=== PATIENT | male | born 1960 | race Caucasian/White ===

== ENCOUNTER → 2017-03-08 | Outpatient (CLI) | payer BC ==
[~2017-03-08] MED LIST: AMOX1TAB42 PO; AMOX500T PO; ASPCH81X PO; B COCAP3 PO; CINN1CAP2 PO; CITA40TA4 PO; EMPA1TAB5 PO; GABA-113 PO; GEMF600T3 PO; LORA-741 PO; METF500T5 PO; METO50TA16 PO; QUIN20TA30 PO; SACC250C3 PO; SIMV40TA2 PO; SULF-183 PO; VITA400C28 PO; ZINC25TA PO
[2017-03-08 14:56] LABS: BLOOD UREA NITROGEN 34 mg/dl (7-18); BUN/CREATININE RATIO 22.4 (10-20); CALCIUM 9.1 mg/dl (8.5-10.1); CARBON DIOXIDE 26 mmol/L (21-32); CHLORIDE 106 mmol/L (98-107); GLUCOSE 152 mg/dl (70-99); POTASSIUM 4.4 mmol/L (3.5-5.1); SODIUM 138 mmol/L (136-145)
[2017-03-08 15:40] LABS: RATIO 2527.5 mcg/mg (0-30.0)
== END | disposition home or self-care (01) ==
LOC: C.LAB1850 13:18
PROVIDERS: ATTEND Nurse Practitioner Family
DX: E11.65 Type 2 diabetes mellitus with hyperglycemia (principal)

== ENCOUNTER 2017-03-24 10:50 | Emergency (ER) | payer BC ==
[~2017-03-24] VITALS: Ht 182.9 cm; Wt 119.7 kg
[2017-03-24 10:54] VITALS: TEMP 36.4; Ht 182.9 cm; Wt 119.7 kg
[2017-03-24] MEDS ORDERED: SODIUM CHLORIDE 0.9% 1000ML 1,000 ML IV STA (11:24)
--- NOTE | 2017-03-24 11:28 | EMERGENCY ROOM VISIT NOTE ---
History Report prepared by Andrzej: Jocelyne Portillo Under the Supervision of: Dr. Sánchez Tucker M.D. First contact with patient: 11:13 Chief Complaint: WOUND INFECTION Stated Complaint: RIGHT LEG INFECTION/STREAK GOING UP LEG History of Present Illness The patient is a 56 year old male who presents to the Emergency Room with complaints of a worsening infection to his right foot that began over one week ago. He currently rates her discomfort as a 10/10 in severity. The patient reports that he has been treated for a cellulitis on his right foot with Ceftin for 6 days. He states that yesterday he saw his PCP and his infection was looking better, but notes that he had developed a cold. The patient states that due to his cold, his PCP decided to place him on a stronger antibiotic, Augmentin. He states that over night he began to notice an increased infection , noting streaking up his right leg. The patient reports a history of diabetes , noting that he is on Metformin, not insulin. He states that he is on aspirin daily. The patient denies any history of PE or DVT. He denies having a chest x -ray while at his PCP's office yesterday. The patient denies any fever, chills , nausea, vomiting, diarrhea, urinary symptoms, dizziness, or headaches. Source of History: patient Onset: over one week ago Position: foot (right) Symptom Intensity: 10/10 Quality: other (infection) Timing: worsening Associated Symptoms: No fevers, No chills, No headache, No nausea, No vomiting, No diarrhea, No urinary symptoms Review of Systems See HPI for pertinent positives and negatives. A total of ten systems were reviewed and were otherwise negative. Past Medical & Surgical Medical Problems: (1) Diabetes Family History No pertinent family history stated. Social History Smoking Status: Former Smoker Marital Status: Housing Status: lives with significant other Occupation Status: employed Current/Historical Medications Scheduled Amoxicillin & Pot Clavulanate (Augmentin 500MG), 500 MG PO Q8H Amoxicillin & Pot Clavulanate (Amoxicillin/Clavulanate P), 1 TAB PO BID Aspirin (Aspirin Chewable), 81 MG PO BID B Complex W/ C (Vitamin B Complex-C), 1 CAP PO DAILY Cinnamon (Cinnamon), 500 MG PO DAILY Citalopram (Citalopram Hydrobromide), 40 MG PO DAILY Empagliflozin-Linagliptin (Glyxambi 25-5 mg), 1 TAB PO DAILY Gabapentin (Neurontin), 300 MG PO TID Gemfibrozil (Lopid), 600 MG PO BIDM Metformin Hcl Er (Glucophage Er), 1,000 MG PO BID Metoprolol Tartrate (Lopressor) (Lopressor), 200 MG PO BID Quinapril Hcl (Quinapril Hcl), 20 MG PO DAILY Saccharomyces Boulardii (Florastor), 1 CAP PO BID Simvastatin (Zocor), 40 MG PO QPM Sulfamethoxazole-Trimethoprim (Smz-Tmp Ds), 2 TAB PO BID Vitamin E (Alph-E), 400 MG PO DAILY Zinc (Zinc), 25 MG PO DAILY Scheduled PRN Lorazepam (Ativan), 0.5 MG PO TID PRN for Anxiety Allergies Coded Allergies: No Known Allergies (Unverified , 03/24/17) Physical Exam Vital Signs Date Time Temp Pulse Resp B/P (MAP) Pulse Ox O2 Delivery O2 Flow Rate FiO2 03/24/17 15:39 62 18 141/78 96 03/24/17 14:30 71 18 162/90 94 Room Air 03/24/17 12:30 74 15 121/71 98 Room Air 03/24/17 10:54 36.4 77 20 119/73 92 Room Air Physical Exam GENERAL: Awake, alert, well-appearing, in no distress HENT: Normocephalic, atraumatic. Dry mucous membranes. EYES: Normal conjunctiva. Sclera non-icteric. NECK: Supple. No nuchal rigidity. FROM. No JVD. RESPIRATORY: Clear to auscultation. CARDIAC: Regular rate, normal rhythm. Extremities warm and well perfused. Pulses equal. ABDOMEN: Soft, non-distended. No tenderness to palpation. No rebound or guarding. No masses. RECTAL: Deferred. MUSCULOSKELETAL: Chest examination reveals no tenderness. The back is symmetrical on inspection without obvious abnormality. There is no CVA tenderness to palpation. No joint edema. LOWER EXTREMITIES: Right lower extremity has an ulcer with induration but no fluctuance at the lateral aspect of the dorsum of the right foot with erythema and edema of the foot, spanning medially, has a streak of erythema extending on the medial aspect of the right lower leg. NEURO: Normal sensorium. No sensory or motor deficits noted. SKIN: No rash or jaundice noted. Medical Decision & Procedures ER Provider Diagnostic Interpretation: X-ray: Per my interpretation, radiologist review. RIGHT TIBIA/FIBULA 2 VIEWS ROUTINE CLINICAL HISTORY: Pain and swelling COMPARISON: None. DISCUSSION: No acute fractures or dislocations are visualized. There are vascular calcifications present. No destructive lesions are evident. There is mild soft tissue swelling. IMPRESSION: No fractures or destructive lesions identified. Electronically signed by: Javier Cary M.D. 03/24/2017 12:15 PM Dictated Date/Time: 03/24/2017 12:14 PM RIGHT FOOT MIN 3 VIEWS ROUTINE CLINICAL HISTORY: Right foot pain and swelling COMPARISON: None. DISCUSSION: There are tiny bony fragments adjacent to the medial aspect of the medial cuneiform. This could represent a small chip/avulsion fracture. Clinical correlation is advocated as no history of trauma was given. There are mild degenerative changes present. There is a prominent Achilles insertional spur. There is a small plantar calcaneal spur. There are vascular calcifications present. IMPRESSION: Tiny bony fragments adjacent the medial aspect of the medial cuneiform. This could represent a small chip/avulsion fracture of indeterminate age. Clinical correlation is advocated as no history of trauma was given. Electronically signed by: Javier Cary M.D. 03/24/2017 12:12 PM Dictated Date/Time: 03/24/2017 12:09 PM Laboratory Results 03/24/17 11:45 Red Blood Count 5.01, Mean Corpuscular Volume 90.2, Mean Corpuscular Hemoglobin 29.7, Mean Corpuscular Hemoglobin Concent 33.0, Mean Platelet Volume 10.7, Neutrophils (%) (Auto) 60.3, Lymphocytes (%) (Auto) 23.9, Monocytes (%) (Auto) 9.0, Eosinophils (%) (Auto) 5.6, Basophils (%) (Auto) 0.7, Neutrophils # (Auto) 5.49, Lymphocytes # (Auto) 2.18, Monocytes # (Auto) 0.82, Eosinophils # (Auto) 0.51, Basophils # (Auto) 0.06 03/24/17 11:45 Test 03/24/17 11:45 White Blood Count 9.11 K/uL (4.8-10.8) Red Blood Count 5.01 M/uL (4.7-6.1) Hemoglobin 14.9 g/dL (14.0-18.0) Hematocrit 45.2 % (42-52) Mean Corpuscular Volume 90.2 fL (80-100) Mean Corpuscular Hemoglobin 29.7 pg (25-34) Mean Corpuscular Hemoglobin Concent 33.0 g/dl (32-36) Platelet Count 195 K/uL (130-400) Mean Platelet Volume 10.7 fL (7.4-10.4) Neutrophils (%) (Auto) 60.3 % Lymphocytes (%) (Auto) 23.9 % Monocytes (%) (Auto) 9.0 % Eosinophils (%) (Auto) 5.6 % Basophils (%) (Auto) 0.7 % Neutrophils # (Auto) 5.49 K/uL (1.4-6.5) Lymphocytes # (Auto) 2.18 K/uL (1.2-3.4) Monocytes # (Auto) 0.82 K/uL (0.11-0.59) Eosinophils # (Auto) 0.51 K/uL (0-0.5) Basophils # (Auto) 0.06 K/uL (0-0.2) RDW Standard Deviation 43.0 fL (36.4-46.3) RDW Coefficient of Variation 13.1 % (11.5-14.5) Immature Granulocyte % (Auto) 0.5 % Immature Granulocyte # (Auto) 0.05 K/uL (0.00-0.02) Anion Gap 6.0 mmol/L (3-11) Est Creatinine Clear Calc Drug Dose 77.8 ml/min Estimated GFR () 64.2 Estimated GFR (Non- 55.4 BUN/Creatinine Ratio 16.9 (10-20) Calcium Level 8.9 mg/dl (8.5-10.1) Laboratory results reviewed by me Medications Administered Medications (Trade) Dose Ordered Sig/Huseyin Route Start Time Stop Time Status Last Admin Dose Admin Sodium Chloride 1,000 ml @ 250 mls/hr Q4H STAT IV 03/24/17 11:24 03/24/17 15:23 DC 03/24/17 11:24 250 MLS/HR Ampicillin Sodium/ Sulbactam Sodium 3000 mg/Sodium Chloride 108 ml @ 200 mls/hr ONE ONCE IV 03/24/17 12:30 03/24/17 13:02 DC 03/24/17 12:51 200 MLS/HR Trimethoprim/ Sulfamethoxazole (Septra Ds 800/ 160MG Tab) 2 tab NOW STAT PO 03/24/17 12:26 03/24/17 12:27 DC 03/24/17 12:51 2 TAB ED Course 1116: The patient was evaluated in room B9. A complete history and physical exam was performed. 1124: Ordered Sodium Chloride 1000 ml @ 250 mls/hr IV. 1226: Ordered Septra Ds 800/160 mg Tab 2 tab PO. 1230: Ordered Ampicillin Sodium/Sulbactam Sodium 3000 mg/Sodium Chloride 108 ml @ 200 mls/hr IV. Medical Decision I reviewed the patient's past medical history, medications, and the nursing notes as described above. The patient's presentation and history were concerning for Cellulitis, abscess, osteomyelitis, DVT. She is a 56-year-old gentleman with past medical history of diabetes who presents to emergency department with worsening redness in this right lower extremity related to a foot ulcer on the dorsum of his foot history of present illness. The patient is in no acute distress, afebrile table vital signs. On exam the patient has erythema on the dorsum of his foot adjacent to an ulcer, without induration or fluctuance. Erythema and warmth extend medially across the dorsum of the foot with a single streak extending medially across the lower leg. No crepitus. This occurs in the setting of the patient being on Ceftin year for 6 days but then being switched to Augmentin 500 days ago after being seen outpatient and his redness in his foot was improved and thus was treated more for URI symptoms. Labs unremarkable with WBC within normal limits. X-ray negative for osseous involvement. Given the patient is well-appearing, worsening of his cellulitis and this is in the setting of being switched to Augmentin 500 which is subtherapeutic dose for diabetic cellulitis will treat with IV dose of Unasyn today will add additional MRSA coverage with Bactrim. Patient is reliable and strict return instructions were given. Findings and plan for follow-up d/w patient. Patient agreeable and d/c'd per discharge instructions. Medication Reconcilliation Current Medication List: was personally reviewed by me Blood Pressure Screening Patient's blood pressure: Normal blood pressure Blood pressure disposition: Did not require urgent referral Impression Primary Impression: Cellulitis Scribe Attestation The scribe's documentation has been prepared under my direction and personally reviewed by me in its entirety. I confirm that the note above accurately reflects all work, treatment, procedures, and medical decision making performed by me. Departure Information Dispostion Home / Self-Care Prescriptions Saccharomyces Boulardii (Florastor) 250 Mg Cap 1 CAP PO BID for 10 Days, #20 CAP Prov: Sánchez Tucker M.D. 03/24/17 Sulfamethoxazole-Trimethoprim (SMZ-TMP DS) 1 Tab Tab 2 TAB PO BID for 10 Days, #40 TAB Prov: Sánchez Tucker M.D. 03/24/17 Amoxicillin & Pot Clavulanate (AMOXICILLIN/CLAVULANATE P) 1 Tab Tab 1 TAB PO BID for 10 Days, #20 TAB Take one 875/125 mg tablet by mouth BID Prov: Sánchez Tucker M.D. 03/24/17 Referrals Portia Ghosh M.D. (PCP) Patient Instructions Cellulitis Dc, My [facility] Additional Instructions Please follow up with your primary care physician in the next 1-3 days for re- evaluation. You have a skin infection. Otherwise, your exam, xrays, and lab results did not show signs of an emergent condition at this time. We have changed your antibiotic regimen to the following: Augmentin 875/125mg twice daily for 10 days. Bactrim DS 2 tablets twice daily for 10 days. Probiotic as directed to minimize antibiotic associated diarrhea. Return to the emergency department for worsening symptoms as described in the accompanying instructions.
[2017-03-24 11:56] LABS: BASO % 0.7 %; BASO ABS # 0.06 K/uL (0-0.2); COMPLETE YES; EOS % 5.6 %; HEMATOCRIT 45.2 % (42-52); IG% 0.5 %; LYMPH % 23.9 %; LYMPH ABS # 2.18 K/uL (1.2-3.4); MEAN CELL VOLUME 90.2 fL (80-100); MEAN CORPUSCULAR HEMOGLOBIN 29.7 pg (25-34); MEAN PLATELET VOLUME 10.7 fL (7.4-10.4); NEUT % 60.3 %; PLATELET COUNT 195 K/uL (130-400); RED BLOOD COUNT 5.01 M/uL (4.7-6.1); WHITE BLOOD COUNT 9.11 K/uL (4.8-10.8)
[2017-03-24 12:10] LABS: BUN/CREATININE RATIO 16.9 (10-20); CALCIUM 8.9 mg/dl (8.5-10.1); CREATININE 1.4 mg/dl (0.60-1.40); POTASSIUM 4.5 mmol/L (3.5-5.1)
--- NOTE | 2017-03-24 12:13 | DIAGNOSTIC IMAGING REPORT ---
RIGHT FOOT MIN 3 VIEWS ROUTINE CLINICAL HISTORY: Right foot pain and swelling COMPARISON: None. DISCUSSION: There are tiny bony fragments adjacent to the medial aspect of the medial cuneiform. This could represent a small chip/avulsion fracture. Clinical correlation is advocated as no history of trauma was given. There are mild degenerative changes present. There is a prominent Achilles insertional spur. There is a small plantar calcaneal spur. There are vascular calcifications present. IMPRESSION: Tiny bony fragments adjacent the medial aspect of the medial cuneiform. This could represent a small chip/avulsion fracture of indeterminate age. Clinical correlation is advocated as no history of trauma was given. Electronically signed by: Javier Cary M.D. 03/24/2017 12:12 PM Dictated Date/Time: 03/24/2017 12:09 PM
--- NOTE | 2017-03-24 12:16 | DIAGNOSTIC IMAGING REPORT ---
RIGHT TIBIA/FIBULA 2 VIEWS ROUTINE CLINICAL HISTORY: Pain and swelling COMPARISON: None. DISCUSSION: No acute fractures or dislocations are visualized. There are vascular calcifications present. No destructive lesions are evident. There is mild soft tissue swelling. IMPRESSION: No fractures or destructive lesions identified. Electronically signed by: Javier Cary M.D. 03/24/2017 12:15 PM Dictated Date/Time: 03/24/2017 12:14 PM
[2017-03-24] MEDS ORDERED: VITA400C28 PO (12:19)
[2017-03-24] MEDS ORDERED: B COCAP3 PO (12:19)
[2017-03-24] MEDS ORDERED: SIMV40TA2 PO (12:19)
[2017-03-24] MEDS ORDERED: QUIN20TA30 PO (12:19)
[2017-03-24] MEDS ORDERED: CINN1CAP2 PO (12:19)
[2017-03-24] MEDS ORDERED: GABA-113 PO (12:19)
[2017-03-24] MEDS ORDERED: METO50TA16 PO (12:19)
[2017-03-24] MEDS ORDERED: ZINC25TA PO (12:19)
[2017-03-24] MEDS ORDERED: GEMF600T3 PO (12:19)
[2017-03-24] MEDS ORDERED: ASPCH81X PO (12:19)
[2017-03-24] MEDS ORDERED: METF500T5 PO (12:19)
[2017-03-24] MEDS ORDERED: CITA40TA4 PO (12:19)
[2017-03-24] MEDS ORDERED: LORA-741 PO (12:19)
[2017-03-24] MEDS ORDERED: AMOX500T PO (12:19)
[2017-03-24] MEDS ORDERED: EMPA1TAB5 PO (12:19)
[2017-03-24] MEDS ORDERED: SULFAMETHOXAZOLE/TRIMETHOPRIM DS 800/160MG TAB PO STA (12:26)
[2017-03-24] MEDS ORDERED: AMPICILLIN/SULBACTAM SOD INJ 3,000 MG in SODIUM CHLORIDE 0.9% 100ML 100 ML IV ONE (12:30)
[2017-03-24] MEDS ORDERED: SACC250C3 PO (15:16)
[2017-03-24] MEDS ORDERED: AMOX1TAB42 PO (15:16)
[2017-03-24] MEDS ORDERED: SULF-183 PO (15:16)
[2017-03-24 15:39] VITALS: BP 141/78; PULSE 62; O2SAT 96
== END 2017-03-24 15:40 | disposition home or self-care (01) ==
LOC: C.EDB 10:53
DX: L03.115 Cellulitis of right lower limb (principal); E11.9 Type 2 diabetes mellitus without complications; Z79.82 Long term (current) use of aspirin; Z79.899 Other long term (current) drug therapy; Z79.2 Long term (current) use of antibiotics; Z87.891 Personal history of nicotine dependence

== ENCOUNTER → 2017-04-06 | Outpatient (CLI) | payer BC ==
[~2017-04-06] MED LIST changes: -AMOX1TAB42 PO; -SACC250C3 PO; -SULF-183 PO
--- NOTE | 2017-04-06 11:25 | DIAGNOSTIC IMAGING REPORT ---
(RENAL)RETROPERITON COMP CLINICAL HISTORY: 56 years-old Male presenting with N18.3 Chronic kidney disease (CKD), stage III (moderate)[id number]. TECHNIQUE: Real-time grayscale and limited color Doppler ultrasound imaging of the kidneys and bladder was performed. COMPARISON: None. FINDINGS: Right kidney: Normal echogenicity. Right kidney measures 12.1 cm. No hydronephrosis. No convincing evidence of calculus or mass. Normal perfusion. Left kidney: Normal echogenicity. Left kidney measures 11.8 cm. No hydronephrosis. No convincing evidence of calculus or mass. Normal perfusion. Bladder: No bladder wall thickening. Ureteral jets not visualized. Other: None. IMPRESSION: 1. Normal renal ultrasound. No obstruction. Electronically signed by: Ezio Baldwin M.D. 04/06/2017 11:23 AM Dictated Date/Time: 04/06/2017 11:22 AM
== END | disposition home or self-care (01) ==
LOC: C.ULTR 10:56
PROVIDERS: ATTEND Internal Medicine Nephrology
DX: N18.3 Chronic kidney disease, stage 3 (moderate) (principal)

== ENCOUNTER 2017-06-03 19:47 | Emergency (ER) | payer BC ==
[~2017-06-03] VITALS: Ht 182.9 cm; Wt 123.3 kg
[2017-06-03 19:55] VITALS: TEMP 36.5; Ht 182.9 cm; Wt 123.3 kg
[2017-06-03] MEDS ORDERED: LACTATED RINGER'S 1000ML 1,000 ML IV STA (20:17)
[2017-06-03] MEDS ORDERED: METOCLOPRAMIDE HCL INJ 5 MG/ML 2 ML VIAL IV STA (20:17)
--- NOTE | 2017-06-03 20:22 | EMERGENCY ROOM VISIT NOTE ---
History Report prepared by Andrzej: Soila Rayo Under the Supervision of: Dr. Sánchez Tucker M.D. First contact with patient: 19:59 Chief Complaint: FACIAL PAIN/INJURY Stated Complaint: FACE AND NECK PAIN History of Present Illness The patient is a 56 year old male who presents to the Emergency Room with complaints of worsening right sided facial pain beginning 2 weeks ago. The patient notes right sided nasal pressure, eye pressure, jaw pain, and neck pain. The patient denies any dizziness, lightheadedness, weakness, speech changes, headache, or vision symptoms. The patient recently saw his PCP who put him on Flonase. The patient states his pain occurs when he is exposed to cold air and then goes back in warm air. He reports when he is at home inside his symptoms are not present. He has never had pain like this before. The patient has a wound on foot on his foot which he was put on Augmentin for 3 weeks ago. He states his pain started around the time he stopped taking the Augmentin. The patient has been following up with wound care. The patient notes recently getting a shot in his eye for diabetic retinopathy. The patient has a history of diabetes and neuropathy in his feet. Source of History: patient Onset: 2 weeks ago Position: other (facial) Timing: worsening Associated Symptoms: + neck pain, + numbness, No headache, No weakness Note: The patient notes right sided nasal pressure, eye pressure, and jaw pain. Review of Systems See HPI for pertinent positives and negatives. A total of ten systems were reviewed and were otherwise negative. Past Medical & Surgical Medical Problems: (1) Diabetes Family History Patient reports no known family medical history. Social History Smoking Status: Never Smoker Marital Status: Housing Status: lives with significant other Occupation Status: employed Current/Historical Medications Scheduled Aspirin (Aspirin Chewable), 81 MG PO BID B Complex W/ C (Vitamin B Complex-C), 1 CAP PO DAILY Cinnamon (Cinnamon), 500 MG PO DAILY Citalopram (Citalopram Hydrobromide), 40 MG PO DAILY Empagliflozin-Linagliptin (Glyxambi 25-5 mg), 1 TAB PO DAILY Gabapentin (Neurontin), 300 MG PO TID Gemfibrozil (Lopid), 600 MG PO BIDM Metformin Hcl Er (Glucophage Er), 1,000 MG PO BID Metoprolol Tartrate (Lopressor) (Lopressor), 200 MG PO BID Quinapril Hcl (Quinapril Hcl), 20 MG PO DAILY Simvastatin (Zocor), 40 MG PO QPM Vitamin E (Alph-E), 400 MG PO DAILY Zinc (Zinc), 25 MG PO DAILY Scheduled PRN Acetaminophen (Tylenol), 1,000 MG PO UD PRN for Pain Pseudoephedrine Hcl (Sudafed Nasal Decongestan), 30 MG PO UD PRN for SINUS CONGESTION Allergies Coded Allergies: No Known Allergies (Unverified , 06/03/17) Physical Exam Vital Signs Date Time Temp Pulse Resp B/P (MAP) Pulse Ox O2 Delivery O2 Flow Rate FiO2 06/03/17 22:35 74 18 151/93 94 06/03/17 22:00 75 16 175/110 92 Room Air 06/03/17 20:55 75 15 173/85 95 Room Air 06/03/17 20:40 75 06/03/17 20:32 93 Room Air 06/03/17 19:55 36.5 78 18 146/93 92 Room Air Physical Exam GENERAL: Awake, alert, well-appearing, in no distress HENT: Normocephalic, atraumatic. Oropharynx unremarkable. EYES: Normal conjunctiva. Sclera non-icteric. NECK: Supple. No nuchal rigidity. FROM. No JVD. RESPIRATORY: Clear to auscultation. CARDIAC: Regular rate, normal rhythm. Extremities warm and well perfused. Pulses equal. ABDOMEN: Soft, non-distended. No tenderness to palpation. No rebound or guarding. No masses. RECTAL: Deferred. MUSCULOSKELETAL: Chest examination reveals no tenderness. The back is symmetrical on inspection without obvious abnormality. There is no CVA tenderness to palpation. No joint edema. LOWER EXTREMITIES: Calves are equal size bilaterally and non-tender. No edema. No discoloration. NEURO: Normal sensorium. No sensory or motor deficits noted. SKIN: No rash or jaundice noted. Medical Decision & Procedures ER Provider Diagnostic Interpretation: Radiology results as stated below per my review and radiologist interpretation: CHEST ONE VIEW PORTABLE FINDINGS: The lungs are clear. Cardiac silhouette is normal in size. No pleural effusions. No pneumothorax. IMPRESSION: No acute process. Electronically signed by: Colby Doshi M.D. NECK CTA FINDINGS: The aortic arch and proximal great vessels are widely patent. Slightly hypoplastic right vertebral artery. No stenosis within the vertebral arteries. Mild noncalcified plaque within the mid to distal right common carotid artery resulting in approximately 30% stenosis. No significant stenosis within the left common carotid artery. Mild calcified plaque within the bilateral carotid bulbs. This results in approximately 40% focal stenosis within the proximal left internal carotid artery. There is approximately 30% stenosis within the proximal right internal carotid artery. Tortuous mid right internal carotid artery. IMPRESSION: 1. Approximately 30% stenosis within the right common carotid and proximal right internal carotid arteries as described above. 2. Approximately 40% focal stenosis within the proximal left internal carotid artery. 3. No significant stenosis within the vertebral arteries. Electronically signed by: Colby Doshi M.D. HEAD CTA COMPARISON: None. FINDINGS: There is no mass, hematoma, midline shift, or acute infarct. Partial opacification of the right anterior ethmoid air cells. The mastoid air cells are clear. Old small lacunar infarcts seen within the left basal ganglia. Complete opacification of the right maxillary sinus. Incidental note is made of a hypoplastic distal right vertebral artery. 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 The right HAT MARKER originates from the right posterior communicating artery consistent with a persistent circulation. This is considered to be a normal variant. Mild focal narrowing within the mid right M1 segment. Mild to moderate calcified plaque within the bilateral carotid siphons. This results in mild stenosis within the bilateral carotid siphons. The bilateral ACAs, left MCA, and bilateral flight test supervisor are patent. No occlusion or aneurysm identified. IMPRESSION: 1. Mild focal stenosis within the mid right M1 segment. 2. Mild stenosis within the bilateral carotid siphons due to the calcified plaque. 3. Otherwise, no significant stenosis, occlusion, or aneurysm seen within the remaining vessels of the [place]. 4. No acute intracranial abnormality. 5. Complete opacification of the right maxillary sinus. 6. Old small left basal ganglia lacunar infarcts. Electronically signed by: Colby Doshi M.D. Laboratory Results 06/03/17 20:30 Red Blood Count 4.94, Mean Corpuscular Volume 87.4, Mean Corpuscular Hemoglobin 30.2, Mean Corpuscular Hemoglobin Concent 34.5, Mean Platelet Volume 10.6, Neutrophils (%) (Auto) 62.1, Lymphocytes (%) (Auto) 25.3, Monocytes (%) (Auto) 7.9, Eosinophils (%) (Auto) 3.8, Basophils (%) (Auto) 0.6, Neutrophils # (Auto) 7.80, Lymphocytes # (Auto) 3.17, Monocytes # (Auto) 0.99, Eosinophils # (Auto) 0.48, Basophils # (Auto) 0.07 06/03/17 20:30 Test 06/03/17 20:30 White Blood Count 12.55 K/uL (4.8-10.8) Red Blood Count 4.94 M/uL (4.7-6.1) Hemoglobin 14.9 g/dL (14.0-18.0) Hematocrit 43.2 % (42-52) Mean Corpuscular Volume 87.4 fL (80-100) Mean Corpuscular Hemoglobin 30.2 pg (25-34) Mean Corpuscular Hemoglobin Concent 34.5 g/dl (32-36) Platelet Count 196 K/uL (130-400) Mean Platelet Volume 10.6 fL (7.4-10.4) Neutrophils (%) (Auto) 62.1 % Lymphocytes (%) (Auto) 25.3 % Monocytes (%) (Auto) 7.9 % Eosinophils (%) (Auto) 3.8 % Basophils (%) (Auto) 0.6 % Neutrophils # (Auto) 7.80 K/uL (1.4-6.5) Lymphocytes # (Auto) 3.17 K/uL (1.2-3.4) Monocytes # (Auto) 0.99 K/uL (0.11-0.59) Eosinophils # (Auto) 0.48 K/uL (0-0.5) Basophils # (Auto) 0.07 K/uL (0-0.2) RDW Standard Deviation 44.0 fL (36.4-46.3) RDW Coefficient of Variation 13.7 % (11.5-14.5) Immature Granulocyte % (Auto) 0.3 % Immature Granulocyte # (Auto) 0.04 K/uL (0.00-0.02) Anion Gap 10.0 mmol/L (3-11) Est Creatinine Clear Calc Drug Dose 73.7 ml/min Estimated GFR () 59.0 Estimated GFR (Non- 50.9 BUN/Creatinine Ratio 23.1 (10-20) Calcium Level 9.0 mg/dl (8.5-10.1) Total Bilirubin 0.2 mg/dl (0.2-1) Direct Bilirubin < 0.1 mg/dl (0-0.2) Aspartate Amino Transf (AST/SGOT) 19 U/L (15-37) Alanine Aminotransferase (ALT/SGPT) 25 U/L (12-78) Alkaline Phosphatase 94 U/L (45-117) Troponin I < 0.015 ng/ml (0-0.045) Total Protein 7.4 gm/dl (6.4-8.2) Albumin 2.8 gm/dl (3.4-5.0) Lipase 281 U/L (73-393) Laboratory results reviewed by me Medications Administered Medications (Trade) Dose Ordered Sig/Huseyin Route Start Time Stop Time Status Last Admin Dose Admin Lactated Ringer's 1,000 ml @ 999 mls/hr Q1H1M STAT IV 06/03/17 20:17 06/03/17 21:17 DC 06/03/17 20:48 999 MLS/HR ECG Indication: other (facial pain) Rate (beats per minute): 74 Rhythm: normal sinus Findings: no acute ischemic change, other (normal axis) ED Course 2001: The patient was evaluated in room B3B. A complete history and physical exam was performed. 2216: The patients eye pressures are as followed: left eye 13, right eye 13.5. 2230: I reevaluated the patient. Discussed results and discharge instructions: He verbalized understanding and agreement. The patient is ready for discharge. Medical Decision I reviewed the patient's past medical history, medications, and the nursing notes as described above. Differential diagnoses: Trigeminal neuralgia, vertebral carotid dissection, The patient is a 56-year-old gentleman with a past medical history of diabetes, neuropathy, retinopathy presents to the emergency department with complaints of intermittent right facial and neck pain that occurs specifically when he comes indoors from the cold and then eventually dissipates. History of present illness. The patient is well-appearing, afebrile with stable vital signs. Neurologically completely intact. Labs unremarkable. EKG unremarkable. CT CTA without any severe stenosis or acute infarct. However there was comment on old lacunar infarcts. Otherwise incidental note was made of opacified right maxillary sinus which likely would explain the patient's symptoms. IOPs wnl. Plan for PCP follow-up for the patient sinusitis case management assisting for nonemergent neuro follow-up for incidental CT findings. Findings and plan for follow-up reviewed with patient. Patient agreeable and d/c'd per discharge instructions. Medication Reconcilliation Current Medication List: was personally reviewed by me Blood Pressure Screening Patient's blood pressure: Elevated blood pressure Blood pressure disposition: Referred to PCP Impression Primary Impression: Acute maxillary sinusitis Scribe Attestation The scribe's documentation has been prepared under my direction and personally reviewed by me in its entirety. I confirm that the note above accurately reflects all work, treatment, procedures, and medical decision making performed by me. Departure Information Dispostion Home / Self-Care Referrals Portia Ghosh M.D. (PCP) Forms HOME CARE DOCUMENTATION FORM, IMPORTANT VISIT INFORMATION Patient Instructions ED Sinusitis No Abx, My [facility] Additional Instructions Please follow up with your primary care physician in the next 1-3 days for re- evaluation as well as with neurology given your incidental findings on your CT scans. Our case management team will assist you in obtaining this follow up. Your symptoms today are most likely due to sinusitis. Otherwise, your exam, EKG, chest xray, CT scan of your head and neck, and lab results did not show signs of an emergent condition at this time. Mucinex, saline rinses, and steam to help loosen mucus. Acetaminophen for pain as needed. Ensure hydration. Return to the emergency department for worsening symptoms as described in the accompanying instructions.
[2017-06-03 20:32] VITALS: O2SAT 93
[2017-06-03 20:41] LABS: BASO % 0.6 %; BASO ABS # 0.07 K/uL (0-0.2); COMPLETE YES; EOS % 3.8 %; HEMATOCRIT 43.2 % (42-52); IG% 0.3 %; LYMPH % 25.3 %; LYMPH ABS # 3.17 K/uL (1.2-3.4); MEAN CELL VOLUME 87.4 fL (80-100); MEAN CORPUSCULAR HEMOGLOBIN 30.2 pg (25-34); MEAN CORPUSCULAR HGB CONC 34.5 g/dl (32-36); MEAN PLATELET VOLUME 10.6 fL (7.4-10.4); MONO % 7.9 %; NEUT % 62.1 %; PLATELET COUNT 196 K/uL (130-400); RED BLOOD COUNT 4.94 M/uL (4.7-6.1); WHITE BLOOD COUNT 12.55 K/uL (4.8-10.8)
[2017-06-03] MEDS ORDERED: OPTIRAY 320 IV PRN (20:45)
[2017-06-03 20:58] LABS: ALT/SGPT 25 U/L (12-78); BLOOD UREA NITROGEN 35 mg/dl (7-18); BUN/CREATININE RATIO 23.1 (10-20); CARBON DIOXIDE 26 mmol/L (21-32); CHLORIDE 101 mmol/L (98-107); GLUCOSE 163 mg/dl (70-99); POTASSIUM 4.6 mmol/L (3.5-5.1); SODIUM 136 mmol/L (136-145)
[2017-06-03 21:03] LABS: ALKALINE PHOSPHATASE 94 U/L (45-117); AST/SGOT 19 U/L (15-37)
--- NOTE | 2017-06-03 21:08 | DIAGNOSTIC IMAGING REPORT ---
CHEST ONE VIEW PORTABLE HISTORY: Atypical CHEST PAIN COMPARISON: None. FINDINGS: The lungs are clear. Cardiac silhouette is normal in size. No pleural effusions. No pneumothorax. IMPRESSION: No acute process. Electronically signed by: Colby Doshi M.D. 06/03/2017 9:07 PM Dictated Date/Time: 06/03/2017 9:06 PM
[2017-06-03] MEDS ORDERED: PSEU30TA3 PO (21:12)
[2017-06-03] MEDS ORDERED: ACET-1256 PO (21:12)
--- NOTE | 2017-06-03 21:51 | DIAGNOSTIC IMAGING REPORT ---
HEAD CTA HISTORY: Facial pain. Neck pain. Visual abnormality. TECHNIQUE: Multiaxial CT images of the head were performed both before and after the intravenous administration of contrast to evaluate the major cerebral vessels. Maximum intensity projection images were also obtained. A dose lowering technique was utilized adhering to the principles of ALARA. COMPARISON: None. FINDINGS: There is no mass, hematoma, midline shift, or acute infarct. Partial opacification of the right anterior ethmoid air cells. The mastoid air cells are clear. Old small lacunar infarcts seen within the left basal ganglia. Complete opacification of the right maxillary sinus. Incidental note is made of a hypoplastic distal right vertebral artery. 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 The right PATENT LAWYER originates from the right posterior communicating artery consistent with a persistent circulation. This is considered to be a normal variant. Mild focal narrowing within the mid right M1 segment. Mild to moderate calcified plaque within the bilateral carotid siphons. This results in mild stenosis within the bilateral carotid siphons. The bilateral ACAs, left MCA, and bilateral gas singer are patent. No occlusion or aneurysm identified. IMPRESSION: 1. Mild focal stenosis within the mid right M1 segment. 2. Mild stenosis within the bilateral carotid siphons due to the calcified plaque. 3. Otherwise, no significant stenosis, occlusion, or aneurysm seen within the remaining vessels of the [place]. 4. No acute intracranial abnormality. 5. Complete opacification of the right maxillary sinus. 6. Old small left basal ganglia lacunar infarcts. Electronically signed by: Colby Doshi M.D. 06/03/2017 9:49 PM Dictated Date/Time: 06/03/2017 9:40 PM
--- NOTE | 2017-06-03 21:57 | DIAGNOSTIC IMAGING REPORT ---
NECK CTA HISTORY: Neck pain. Facial pain. TECHNIQUE: Multiaxial CT images of the neck were performed following the intravenous administration of contrast to evaluate the major cervical vessels. Maximum intensity projection images were also obtained. All measurements were calculated based on NASCET criteria. A dose lowering technique was utilized adhering to the principles of ALARA. COMPARISON STUDY: None. FINDINGS: The aortic arch and proximal great vessels are widely patent. Slightly hypoplastic right vertebral artery. No stenosis within the vertebral arteries. Mild noncalcified plaque within the mid to distal right common carotid artery resulting in approximately 30% stenosis. No significant stenosis within the left common carotid artery. Mild calcified plaque within the bilateral carotid bulbs. This results in approximately 40% focal stenosis within the proximal left internal carotid artery. There is approximately 30% stenosis within the proximal right internal carotid artery. Tortuous mid right internal carotid artery. IMPRESSION: 1. Approximately 30% stenosis within the right common carotid and proximal right internal carotid arteries as described above. 2. Approximately 40% focal stenosis within the proximal left internal carotid artery. 3. No significant stenosis within the vertebral arteries. Electronically signed by: Colby Doshi M.D. 06/03/2017 9:56 PM Dictated Date/Time: 06/03/2017 9:50 PM
[2017-06-03 22:35] VITALS: BP 151/93; PULSE 74; O2SAT 94
== END 2017-06-03 22:37 | disposition home or self-care (01) ==
LOC: C.EDB 19:48
DX: J01.00 Acute maxillary sinusitis, unspecified (principal); E11.40 Type 2 diabetes mellitus with diabetic neuropathy, unspecified; E11.319 Type 2 diabetes mellitus with unspecified diabetic retinopathy without macular edema; S91.309A Unspecified open wound, unspecified foot, initial encounter; X58.XXXA Exposure to other specified factors, initial encounter; Z79.82 Long term (current) use of aspirin; Z79.84 Long term (current) use of oral hypoglycemic drugs

== ENCOUNTER → 2017-09-27 | Outpatient (CLI) | payer BC ==
[~2017-09-27] VITALS: Ht 182.9 cm; Wt 121.0 kg
[~2017-09-27] MED LIST changes: +ACET-1256 PO; -AMOX500T PO; -LORA-741 PO; +PSEU30TA3 PO
[2017-09-27 13:14] VITALS: BP 114/77; PULSE 71; Ht 182.9 cm; Wt 121.0 kg
== END | disposition home or self-care (01) ==
LOC: C.NEUR 12:45
PROVIDERS: ATTEND Internal Medicine Pulmonary Disease
DX: G47.33 Obstructive sleep apnea (adult) (pediatric) (principal)

== ENCOUNTER 2017-10-22 08:57 | Emergency (ER) | payer BC ==
[~2017-10-22] VITALS: Ht 182.9 cm; Wt 210.0 kg
[2017-10-22 09:06] VITALS: TEMP 36.5; Ht 182.9 cm; Wt 210.0 kg
[2017-10-22] MEDS ORDERED: ONDANSETRON INJ 2 MG/ML 2 ML VIAL IV STA (09:43)
[2017-10-22] MEDS ORDERED: MoRPHine SULFATE 2 MG/ML CARP IV STA (09:43)
[2017-10-22] MEDS ORDERED: GABA-113 PO (09:48)
[2017-10-22] MEDS ORDERED: DEXT1TAB50 PO (09:49)
[2017-10-22] MEDS ORDERED: OPTIRAY 320 IV PRN (10:00)
[2017-10-22 10:26] LABS: BASO % 0.6 %; BASO ABS # 0.05 K/uL (0-0.2); EOS % 6.2 %; EOS ABS # 0.51 K/uL (0-0.5); HEMATOCRIT 42.7 % (42-52); HEMOGLOBIN 14.5 g/dL (14.0-18.0); IG# 0.03 K/uL (0.00-0.02); LYMPH % 27.3 %; LYMPH ABS # 2.24 K/uL (1.2-3.4); MEAN CELL VOLUME 87.3 fL (80-100); MEAN CORPUSCULAR HEMOGLOBIN 29.7 pg (25-34); MEAN PLATELET VOLUME 10.6 fL (7.4-10.4); MONO % 9.2 %; MONO ABS # 0.76 K/uL (0.11-0.59); NEUT % 56.3 %; NEUT ABS # 4.63 K/uL (1.4-6.5); PLATELET COUNT 159 K/uL (130-400); RED CELL DISTRIBUTION WIDTH CV 13.9 % (11.5-14.5); RED CELL DISTRIBUTION WIDTH SD 44.1 fL (36.4-46.3); WHITE BLOOD COUNT 8.22 K/uL (4.8-10.8)
[2017-10-22 10:35] LABS: ISTAT CREATININE 1.4 mg/dl (0.6-1.3); ISTAT IONIZED CALCIUM 1.27 mmol/l (1.12-1.32); ISTAT POTASSIUM 4.9 mEq/L (3.3-5.0)
[2017-10-22 10:38] LABS: CREATININE 1.45 mg/dl (0.60-1.40); POTASSIUM 4.8 mmol/L (3.5-5.1)
--- NOTE | 2017-10-22 11:46 | DIAGNOSTIC IMAGING REPORT ---
CT (CHEST) THORAX WITH CT DOSE: 2845.03 mGy.cm HISTORY: Trauma. Pain. eval for lung trauma TECHNIQUE: Multiaxial CT images of the chest were performed following the intravenous administration of contrast. A dose lowering technique was utilized adhering to the principles of ALARA. COMPARISON: None. FINDINGS: The lungs are clear. The mediastinal vascular structures are within normal limits. No mediastinal or hilar lymphadenopathy. No pleural effusion or pneumothorax. Limited views of the upper abdomen demonstrate a normal liver and spleen. IMPRESSION: No significant abnormality identified within the chest. The above report was generated using voice recognition software. It may contain grammatical, syntax or spelling errors. Electronically signed by: Hawk Law M.D. 10/22/2017 11:44 AM Dictated Date/Time: 10/22/2017 11:40 AM
--- NOTE | 2017-10-22 11:52 | DIAGNOSTIC IMAGING REPORT ---
ABD/PELVIS IV CONTRAST ONLY CT DOSE: HISTORY: Trauma eval for splenic/intraabd trauma TECHNIQUE: Multiaxial CT images of the abdomen and pelvis were performed following the use of intravenous contrast. A dose lowering technique was utilized adhering to the principles of ALARA. COMPARISON STUDY: None. FINDINGS: The lung bases are clear. The liver, spleen, gallbladder, pancreas, kidneys, and adrenal glands are within normal limits. No bowel wall thickening or obstruction. The pelvic organs are unremarkable. No suspicious lytic or blastic osseous lesions. IMPRESSION: No significant abnormality identified within the abdomen or pelvis. The above report was generated using voice recognition software. It may contain grammatical, syntax or spelling errors. Electronically signed by: Hawk Law M.D. 10/22/2017 11:50 AM Dictated Date/Time: 10/22/2017 11:45 AM
[2017-10-22] MEDS ORDERED: OXYC1TAB3 PO (12:42)
[2017-10-22 12:44] VITALS: BP 147/89; PULSE 63; O2SAT 94
--- NOTE | 2017-10-22 12:48 | EMERGENCY ROOM VISIT NOTE ---
History Report prepared by Andrzej: Cisco Preciado Under the Supervision of: Dr. Brandon Yoon M.D. First contact with patient: 09:32 Chief Complaint: FALL Stated Complaint: FALL, RIB PAIN, TROUBLE BREATHING History of Present Illness The patient is a 56 year old male who presents to the Emergency Room with complaints of constant left-sided rib pain s/p fall occurring two days ago. He states that he tripped over a rug repairer while walking in the dark, and landed on his ribs. He believes he likely fell onto the rug repairer itself. The patient also complains of some left arm and left leg pain. He did not hit his head or lose consciousness. His rib pain is worsened with deep breathing. The patient denies back pain, neck pain, abdominal pain, or headache. He is not on any blood thinning medication. He has taken Tylenol for his pain. Source of History: patient Onset: Two days ago Position: other (left-side ribs) Quality: other (pain s/p fall) Timing: constant Modifying Factors (Worsening): breathing (deep) Associated Symptoms: No LOC, No headache, No neck pain, No abdominal pain, No back pain Note: Positive: left arm and left leg pain. Review of Systems See HPI for pertinent positives & negatives. A total of 10 systems reviewed and were otherwise negative. Past Medical & Surgical Medical Problems: (1) Diabetes (2) HTN (hypertension) Old medical records were reviewed. Nurse's notes were reviewed and I agree with. Family History Patient reports no known family medical history. Social History Smoking Status: Never Smoker Marital Status: Housing Status: lives with significant other Occupation Status: employed Current/Historical Medications Scheduled Aspirin (Aspirin Chewable), 81 MG PO BID B Complex W/ C (Vitamin B Complex-C), 1 CAP PO DAILY Cinnamon (Cinnamon), 500 MG PO DAILY Citalopram (Citalopram Hydrobromide), 40 MG PO DAILY Empagliflozin-Linagliptin (Glyxambi 25-5 mg), 1 TAB PO DAILY Gabapentin (Neurontin), 300 MG PO QAM Gabapentin (Neurontin), 600 MG PO QPM Gemfibrozil (Lopid), 600 MG PO BIDM Metformin Hcl Er (Glucophage Er), 1,000 MG PO BID Metoprolol Tartrate (Lopressor) (Lopressor), 200 MG PO BID Quinapril Hcl (Quinapril Hcl), 20 MG PO DAILY Simvastatin (Zocor), 40 MG PO QPM Vitamin E (Alph-E), 400 MG PO DAILY Zinc (Zinc), 25 MG PO DAILY Scheduled PRN Acetaminophen (Tylenol), 1,000 MG PO UD PRN for Pain Dextromethorphan-Guaifenesin (Mucinex Dm Maximum Streng), 1 TAB PO UD PRN for CONGESTION Oxycodone Immediate Rel Tab (Roxicodone Ir), 1-2 TAB PO Q4H PRN for Severe Pain Allergies Coded Allergies: No Known Allergies (Unverified , 10/22/17) Physical Exam Vital Signs Date Time Temp Pulse Resp B/P (MAP) Pulse Ox O2 Delivery O2 Flow Rate FiO2 10/22/17 12:44 63 16 147/89 94 Room Air 10/22/17 11:40 71 18 159/93 94 Room Air 10/22/17 10:33 65 16 157/89 93 Room Air 10/22/17 09:06 36.5 88 20 154/85 99 Room Air Physical Exam General: Non-ill appearing middle-aged male who is uncomfortable with movement otherwise in no acute distress. HEENT: Normal cephalic atraumatic. Pupils are equal round and reactive to light. Extraocular movements are intact. Oropharynx is pink with moist mucous membranes. No swelling of the mouth lips or tongue. Neck: Supple with a midline trachea. No meningeal signs or stiffness, no JVD or bruits. No Stridor. Chest: Clear to auscultation bilaterally. No wheezes or rhonchi. No increased work of breathing. Tender to the left mid to lower ribs. No crepitus or external signs of trauma. Heart: regular rate and rhythm. Abdomen: Soft, nondistended without rebound guarding or rigidity. Mild tenderness to left upper abdomen. Extremities: No cyanosis clubbing or edema. No calf tenderness or assymetry. Bruising on the left arm and leg. Spine/Back. Non tender to palpation. No CVA tenderness Skin: Good turgor without rashes. Neurologic exam: Cranial nerves two through 12 are intact. Motor and sensation are intact and symmetrical throughout. Medical Decision & Procedures ER Provider Diagnostic Interpretation: Radiology results as stated below per my review and radiologist interpretation: CT (CHEST) THORAX WITH COMPARISON: None. FINDINGS: The lungs are clear. The mediastinal vascular structures are within normal limits. No mediastinal or hilar lymphadenopathy. No pleural effusion or pneumothorax. Limited views of the upper abdomen demonstrate a normal liver and spleen. IMPRESSION: No significant abnormality identified within the chest. The above report was generated using voice recognition software. It may contain grammatical, syntax or spelling errors. Electronically signed by: Hawk Law M.D. 10/22/2017 11:44 AM ABD/PELVIS IV CONTRAST ONLY FINDINGS: The lung bases are clear. The liver, spleen, gallbladder, pancreas, kidneys, and adrenal glands are within normal limits. No bowel wall thickening or obstruction. The pelvic organs are unremarkable. No suspicious lytic or blastic osseous lesions. IMPRESSION: No significant abnormality identified within the abdomen or pelvis. The above report was generated using voice recognition software. It may contain grammatical, syntax or spelling errors. Electronically signed by: Hawk Law M.D. 10/22/2017 11:50 AM Laboratory Results 10/22/17 10:15 Red Blood Count 4.89, Mean Corpuscular Volume 87.3, Mean Corpuscular Hemoglobin 29.7, Mean Corpuscular Hemoglobin Concent 34.0, Mean Platelet Volume 10.6, Neutrophils (%) (Auto) 56.3, Lymphocytes (%) (Auto) 27.3, Monocytes (%) (Auto) 9.2, Eosinophils (%) (Auto) 6.2, Basophils (%) (Auto) 0.6, Neutrophils # (Auto) 4.63, Lymphocytes # (Auto) 2.24, Monocytes # (Auto) 0.76, Eosinophils # (Auto) 0.51, Basophils # (Auto) 0.05 10/22/17 10:15 Test 10/22/17 10:15 10/22/17 10:20 White Blood Count 8.22 K/uL (4.8-10.8) Red Blood Count 4.89 M/uL (4.7-6.1) Hemoglobin 14.5 g/dL (14.0-18.0) Hematocrit 42.7 % (42-52) Mean Corpuscular Volume 87.3 fL (80-100) Mean Corpuscular Hemoglobin 29.7 pg (25-34) Mean Corpuscular Hemoglobin Concent 34.0 g/dl (32-36) Platelet Count 159 K/uL (130-400) Mean Platelet Volume 10.6 fL (7.4-10.4) Neutrophils (%) (Auto) 56.3 % Lymphocytes (%) (Auto) 27.3 % Monocytes (%) (Auto) 9.2 % Eosinophils (%) (Auto) 6.2 % Basophils (%) (Auto) 0.6 % Neutrophils # (Auto) 4.63 K/uL (1.4-6.5) Lymphocytes # (Auto) 2.24 K/uL (1.2-3.4) Monocytes # (Auto) 0.76 K/uL (0.11-0.59) Eosinophils # (Auto) 0.51 K/uL (0-0.5) Basophils # (Auto) 0.05 K/uL (0-0.2) RDW Standard Deviation 44.1 fL (36.4-46.3) RDW Coefficient of Variation 13.9 % (11.5-14.5) Immature Granulocyte % (Auto) 0.4 % Immature Granulocyte # (Auto) 0.03 K/uL (0.00-0.02) Est Creatinine Clear Calc Drug Dose 103.8 ml/min Estimated GFR () 61.5 Estimated GFR (Non- 53.1 BUN/Creatinine Ratio 22.7 (10-20) Calcium Level 9.0 mg/dl (8.5-10.1) Bedside Hemoglobin 14.6 g/dl (14.0-18.0) Bedside Hematocrit 43 % (42-52) Bedside Sodium 137 mEq/L (135-144) Bedside Potassium 4.9 mEq/L (3.3-5.0) Bedside Chloride 107 mEq/L (101-112) Bedside Total CO2 22 mEq/l (24-31) Anion Gap 14.0 mmol/L (16-25) Bedside Blood Urea Nitrogen 32 mg/dl (7-18) Bedside Creatinine 1.4 mg/dl (0.6-1.3) Bedside Glucose (other) 252 mg/dl (70-99) Bedside Ionized Calcium (Efrain) 1.27 mmol/l (1.12-1.32) Laboratory studies as stated above per my review. Medications Administered Medications (Trade) Dose Ordered Sig/Huseyin Route Start Time Stop Time Status Last Admin Dose Admin Ondansetron HCl (Zofran Inj) 4 mg NOW STAT IV 10/22/17 09:43 10/22/17 09:47 DC 10/22/17 10:35 4 MG Morphine Sulfate (MoRPHine SULFATE INJ) 2 mg NOW STAT IV 10/22/17 09:43 10/22/17 09:47 DC 10/22/17 10:35 2 MG ED Course 932: Past medical records reviewed. The patient was evaluated in room B9, and a complete history and physical examination were performed. 0943: Ordered Morphine Sulfate 2 mg IV, Zofran Inj 4 mg IV. 1052: I reassessed the patient. He is resting comfortably. 1239: Upon reevaluation, the patient is resting comfortably. I discussed the results and treatment plan with him. He verbalized agreement of the treatment plan. The patient was discharged home. Medical Decision Differentials include, but are not limited to; rib fracture, pneumothorax, splenic injury, and orthopedic injury. This patient comes in as described above. He was placed in room B9. He fell over the weekend landed on his left chest he has pain there with breathing and moving particularly if he tries to get up or down. On exam he is tender in the lower ribs and slightly into the left upper abdomen. He has some abrasions to arm and leg which are superficial and do not appear to be infected. He has no crepitus. IV access established blood work was obtained. he does have some mild renal insufficiency with a creatinine of 1 4. He does have some mild elevated blood sugar consistent with his chronic diabetes. I did a CAT scan of the chest abdomen and pelvis. there are no acute traumatic injuries. There is no pneumothorax. There is no hematoma or solid organ injuries. He did receive Zofran IV and morphine IV while is here he is not driving. He is feeling a lot better and up to going home. I will have him continue use Tylenol if needed but do not exceed 2 pills every 6 hours. Also I gave him a small prescription for OxyIR 5 mg, 1 or 2 pills every 4-6 hours as needed. This is for breakthrough pain. He was warned that this can make him drowsy and do not take before drinking, driving, working. He was encouraged to follow-up with his regular doctor next couple days for recheck and return to the ER if : increasing pain, worsening of symptoms, shortness of breath, any new problems or concerns. He was happy to plan and discharged to home. Medication Reconcilliation Current Medication List: was personally reviewed by me Blood Pressure Screening Patient's blood pressure: Elevated blood pressure Blood pressure disposition: Referred to PCP Impression Primary Impression: Rib contusion Additional Impression: Left sided chest pain Scribe Attestation The scribe's documentation has been prepared under my direction and personally reviewed by me in its entirety. I confirm that the note above accurately reflects all work, treatment, procedures, and medical decision making performed by me. Departure Information Dispostion Home / Self-Care Prescriptions Oxycodone Immediate Rel Tab (ROXICODONE IR) 5 Mg Tab 1-2 TAB PO Q4H Y for Severe Pain, #24 TAB Prov: Brandon Yoon M.D. 10/22/17 Referrals Donell Velásquez M.D. (PCP) Forms HOME CARE DOCUMENTATION FORM, IMPORTANT VISIT INFORMATION Patient Instructions My [facility] Additional Instructions Rest. Drink plenty of fluids. Be careful in getting up and down May use Tylenol/acetaminophen a maximum of 2 regular strength pills every 6 hours. Not take with any other medications that contain acetaminophen/Tylenol For more severe pain, may use OxyIR 5 mg, 1 or 2 pills every 4-6 hours as needed OxyIR may make you drowsy- do not take before drinking, driving, working Return to the ER if: Increasing pain, worsening of symptoms, shortness of breath , any new problems or concerns Follow-up with your doctor this week for recheck in the next couple days Problem Qualifiers
== END 2017-10-22 12:52 | disposition home or self-care (01) ==
LOC: C.EDB 08:58
DX: S20.212A Contusion of left front wall of thorax, initial encounter (principal); S40.812A Abrasion of left upper arm, initial encounter; S80.812A Abrasion, left lower leg, initial encounter; R07.89 Other chest pain; W18.09XA Striking against other object with subsequent fall, initial encounter; E11.9 Type 2 diabetes mellitus without complications; I10 Essential (primary) hypertension; Z79.899 Other long term (current) drug therapy

== ENCOUNTER → 2017-10-30 | Outpatient (CLI) | payer BC ==
[~2017-10-30] MED LIST changes: +DEXT1TAB50 PO; +OXYC1TAB3 PO; -PSEU30TA3 PO
[2017-10-30 10:47] LABS: ALBUMIN 3.3 gm/dl (3.4-5.0); BLOOD UREA NITROGEN 42 mg/dl (7-18); CALCIUM 9.2 mg/dl (8.5-10.1); CARBON DIOXIDE 26 mmol/L (21-32); CHOLESTEROL 199 mg/dl (0-200); CREATININE 1.68 mg/dl (0.60-1.40); GLUCOSE 292 mg/dl (70-99); POTASSIUM 4.6 mmol/L (3.5-5.1); SODIUM 133 mmol/L (136-145)
[2017-10-30 10:50] LABS: LDL CHOLESTEROL CALCULATED 102 mg/dl
[2017-10-30 11:09] LABS: HEMOGLOBIN A1C 9.1 % (4.5-5.6)
== END | disposition home or self-care (01) ==
LOC: C.LAB1850 09:15
PROVIDERS: ATTEND Nurse Practitioner Family
DX: N18.3 Chronic kidney disease, stage 3 (moderate) (principal); E11.65 Type 2 diabetes mellitus with hyperglycemia; E11.22 Type 2 diabetes mellitus with diabetic chronic kidney disease; E78.5 Hyperlipidemia, unspecified

== ENCOUNTER 2017-11-07 12:10 | Inpatient (IN) | payer BC ==
[~2017-11-07] VITALS: Ht 185.4 cm; Wt 119.7 kg
[2017-11-07] MEDS ORDERED: ACETAMINOPHEN 500 MG TAB PO STA (12:23)
[2017-11-07] MEDS ORDERED: PIPERACILLIN/TAZOBACTAM 4.5 GM/100ML D5W IV STA (12:23)
[2017-11-07] MEDS ORDERED: SODIUM CHLORIDE 0.9% 1000ML 1,000 ML IV ONE (12:23)
--- NOTE | 2017-11-07 12:32 | EMERGENCY ROOM VISIT NOTE ---
History Report prepared by Andrzej: Vijay Vincent Under the Supervision of: Dr. Conner Doll M.D. First contact with patient: 12:15 Chief Complaint: ILLNESS Stated Complaint: FEVER,ACHES,SOB,WHEEZING,CHEST PAIN, VOMITING History of Present Illness The patient is a 56 year old male who presents to the Emergency Room with complaints of worsening weakness that began 2 days ago. The patient visited his Doctor 2 days ago to get a shot in his left eye for Diabetic Retinopathy. After leaving the office the patient began to feel ill. He started to get weak and felt short of breath. He did vomit once yesterday and once today, and has started coughing. The cough is producing a "dark yellow mucous," per his . The notes that the patient has been very unsteady on his feet today, and that he has had a fever. The patient was in the Emergency Department recently following a falling episode. He broke some ribs on the left, but had an unremarkable CT scan otherwise. The patient denies any urinary symptoms, diarrhea, or rashes. The patient is a diabetic, and his notes that his sugar has been in the 140-150s over the past couple of days. Source of History: patient, spouse/significant other Onset: 21 hours ago Position: chest Quality: other (Chest - Cough, Diffuse weakness) Timing: worsening Associated Symptoms: + fevers, + SOB, + vomiting, + weakness, No diarrhea, No urinary symptoms, No rash Review of Systems See HPI for pertinent positives & negatives. A total of 10 systems reviewed and were otherwise negative. Past Medical & Surgical Medical Problems: (1) Diabetes (2) HTN (hypertension) (3) Sepsis Family History Patient reports no known family medical history. Social History Smoking Status: Former Smoker Marital Status: Housing Status: lives with significant other Occupation Status: employed Current/Historical Medications Scheduled Aspirin (Aspirin Chewable), 81 MG PO DAILY B Complex W/ C (Vitamin B Complex-C), 1 CAP PO DAILY Cinnamon (Cinnamon), 500 MG PO DAILY Citalopram (Citalopram Hydrobromide), 40 MG PO DAILY Empagliflozin-Linagliptin (Glyxambi 25-5 mg), 1 TAB PO DAILY Gabapentin (Neurontin), 300 MG PO QAM Gabapentin (Neurontin), 600 MG PO QPM Gemfibrozil (Lopid), 600 MG PO BIDM Metformin Hcl Er (Glucophage Er), 500 MG PO BID Metoprolol Tartrate (Lopressor) (Lopressor), 200 MG PO BID Quinapril Hcl (Quinapril Hcl), 20 MG PO DAILY Simvastatin (Zocor), 40 MG PO QPM Vitamin E (Alph-E), 400 MG PO DAILY Zinc (Zinc), 25 MG PO DAILY Scheduled PRN Acetaminophen (Tylenol), 1,000 MG PO UD PRN for Pain Dextromethorphan-Guaifenesin (Mucinex Dm Maximum Streng), 1 TAB PO UD PRN for CONGESTION Allergies Coded Allergies: No Known Allergies (Unverified , 11/07/17) Physical Exam Vital Signs Date Time Temp Pulse Resp B/P (MAP) Pulse Ox O2 Delivery O2 Flow Rate FiO2 11/07/17 14:31 132/68 11/07/17 14:25 84 23 94 Room Air 11/07/17 14:14 87 Room Air 11/07/17 14:14 94 Nasal Cannula 2.0 11/07/17 14:06 83 18 151/75 94 Room Air 11/07/17 13:14 84 22 137/73 93 Room Air 11/07/17 12:40 94 Room Air 11/07/17 12:40 82 24 121/74 94 Room Air 11/07/17 12:38 81 11/07/17 12:13 39.1 85 20 121/67 91 Room Air Physical Exam GENERAL: Patient is in no acute distress. HEENT: No acute trauma, normocephalic atraumatic, mucous membranes moist, no nasal congestion, no scleral icterus. NECK: No stridor, no adenopathy, no meningismus, trachea is midline. LUNGS: There are crackles in the left base, no wheezing, breath sounds equal. No respiratory distress. HEART: Without murmurs gallops or rubs, regular rate and rhythm. ABDOMEN: Soft, nontender, bowel sounds positive, no hernias, no peritonitis. EXTREMITIES: There is no obvious deformity of the LEs. There is no edema to the LEs. There is some subtle erythema to the dorsum of the right second toe, which is surrounding an abrasion. There is no drainage. There is a contusion to the base of the right first toenail, no erythema. There are healing abrasions to the left and right LEs. NEUROLOGIC: Oriented x 3, no acute motor or sensory deficits, no focal weakness. No cerebellar deficits or pronator drift. SKIN: No rash, no jaundice, no diaphoresis. Medical Decision & Procedures ER Provider Diagnostic Interpretation: Radiology results as stated below per my review and radiologist interpretation: CHEST ONE VIEW PORTABLE CLINICAL HISTORY: 56 years-old Male presenting with Sepsis. TECHNIQUE: Portable upright AP view of the chest was obtained. COMPARISON: 06/03/[address] from 10/22/2017. FINDINGS: Cardiomediastinal silhouette normal. Peripheral hazy opacity in the right lower lung. This is new from prior. Mild prominence of pulmonary vasculature. No large effusion or pneumothorax. Osseous structures normal. IMPRESSION: 1. Peripheral consolidation in the right lower lung concerning for pneumonia. Dedicated PA and lateral views versus chest CT could be obtained to confirm this finding. Electronically signed by: Ezio Baldwin M.D. 11/07/2017 1:08 PM Dictated Date/Time: 11/07/2017 1:07 PM Laboratory Results 11/07/17 12:35 Red Blood Count 4.83, Mean Corpuscular Volume 87.2, Mean Corpuscular Hemoglobin 29.8, Mean Corpuscular Hemoglobin Concent 34.2, Mean Platelet Volume 11.2, Neutrophils (%) (Auto) 85.1, Lymphocytes (%) (Auto) 6.7, Monocytes (%) (Auto) 7.3, Eosinophils (%) (Auto) 0.4, Basophils (%) (Auto) 0.2, Neutrophils # (Auto) 13.91, Lymphocytes # (Auto) 1.10, Monocytes # (Auto) 1.19, Eosinophils # (Auto) 0.06, Basophils # (Auto) 0.04 11/07/17 12:35 Test 11/07/17 12:30 11/07/17 12:35 11/07/17 12:46 11/07/17 13:45 Influenza Type A (RT-PCR) Neg for Influ A (NEG) Influenza Type B (RT-PCR) Neg for Influ B (NEG) White Blood Count 16.35 K/uL (4.8-10.8) Red Blood Count 4.83 M/uL (4.7-6.1) Hemoglobin 14.4 g/dL (14.0-18.0) Hematocrit 42.1 % (42-52) Mean Corpuscular Volume 87.2 fL (80-100) Mean Corpuscular Hemoglobin 29.8 pg (25-34) Mean Corpuscular Hemoglobin Concent 34.2 g/dl (32-36) Platelet Count 177 K/uL (130-400) Mean Platelet Volume 11.2 fL (7.4-10.4) Neutrophils (%) (Auto) 85.1 % Lymphocytes (%) (Auto) 6.7 % Monocytes (%) (Auto) 7.3 % Eosinophils (%) (Auto) 0.4 % Basophils (%) (Auto) 0.2 % Neutrophils # (Auto) 13.91 K/uL (1.4-6.5) Lymphocytes # (Auto) 1.10 K/uL (1.2-3.4) Monocytes # (Auto) 1.19 K/uL (0.11-0.59) Eosinophils # (Auto) 0.06 K/uL (0-0.5) Basophils # (Auto) 0.04 K/uL (0-0.2) RDW Standard Deviation 44.3 fL (36.4-46.3) RDW Coefficient of Variation 14.0 % (11.5-14.5) Immature Granulocyte % (Auto) 0.3 % Immature Granulocyte # (Auto) 0.05 K/uL (0.00-0.02) Prothrombin Time 11.4 SECONDS (9.0-12.0) Prothromb Time International Ratio 1.1 (0.9-1.1) Activated Partial Thromboplast Time 28.5 SECONDS (21.0-31.0) Partial Thromboplastin Ratio 1.1 Anion Gap 10.0 mmol/L (3-11) Est Creatinine Clear Calc Drug Dose 57.9 ml/min Estimated GFR () 44.1 Estimated GFR (Non- 38.0 BUN/Creatinine Ratio 16.7 (10-20) Calcium Level 8.5 mg/dl (8.5-10.1) Total Bilirubin 0.7 mg/dl (0.2-1) Aspartate Amino Transf (AST/SGOT) 14 U/L (15-37) Alanine Aminotransferase (ALT/SGPT) 20 U/L (12-78) Alkaline Phosphatase 128 U/L (45-117) Total Protein 7.4 gm/dl (6.4-8.2) Albumin 2.6 gm/dl (3.4-5.0) Globulin 4.8 gm/dl (2.5-4.0) Albumin/Globulin Ratio 0.5 (0.9-2) Lyme Disease IgG Antibody NEG (NEG) Lyme Disease IgM Antibody NEG (NEG) Bedside Lactic Acid Venous 2.44 mmol/L (0.90-1.70) Urine Color YELLOW Urine Appearance CLEAR (CLEAR) Urine pH 5.0 (4.5-7.5) Urine Specific [place] 1.028 (1.000-1.030) Urine Protein 3+ (NEG) Urine Glucose (UA) 3+ (NEG) Urine Ketones NEG (NEG) Urine Occult Blood 1+ (NEG) Urine Nitrite NEG (NEG) Urine Bilirubin NEG (NEG) Urine Urobilinogen NEG (NEG) Urine Leukocyte Esterase NEG (NEG) Urine WBC (Auto) 1-5 /hpf (0-5) Urine RBC (Auto) 0-4 /hpf (0-4) Urine Hyaline Casts (Auto) 5-10 /lpf (0-5) Urine Epithelial Cells (Auto) 20-30 /lpf (0-5) Urine Bacteria (Auto) NEG (NEG) Laboratory results reviewed by me. Medications Administered Medications (Trade) Dose Ordered Sig/Huseyin Route Start Time Stop Time Status Last Admin Dose Admin Sodium Chloride 1,000 ml @ 999 mls/hr Q1H1M ONCE IV 11/07/17 12:23 11/07/17 13:23 DC 11/07/17 12:34 999 MLS/HR Piperacillin Sod/ Tazobactam Sod (Zosyn Iv) 4.5 gm ONE STAT IV 11/07/17 12:23 11/07/17 12:24 DC 11/07/17 12:42 4.5 GM Acetaminophen (Tylenol Tab) 1,000 mg NOW STAT PO 11/07/17 12:23 11/07/17 12:24 DC 11/07/17 12:33 1,000 MG Morphine Sulfate (MoRPHine SULFATE INJ) 4 mg Q15M PRN IV 11/07/17 13:30 11/21/17 13:29 11/07/17 14:08 4 MG Ondansetron HCl (Zofran Inj) 4 mg NOW STAT IV 11/07/17 13:25 11/07/17 13:26 DC 11/07/17 13:39 4 MG Albuterol/ Ipratropium (Duoneb) 3 ml NOW STAT INH 11/07/17 13:27 11/07/17 13:28 DC 11/07/17 13:38 3 ML ED Course 1217: The patient was evaluated in room B2. A complete history and physical exam was performed. 1223: Ordered Tylenol 1000 mg PO, Zosyn 4.5 gm IV, Sodium Chloride 1000 mL @ 999 mL/hr IV. 1324: The nursing staff has informed me that the patient is having more pain. 1325: Ordered Zofran 4 mg IV. 1327: Ordered Duoneb 3 mL INH. 1328: I checked on the patient. He is agreeable to an inpatient stay. 1330: Ordered Morphine Sulfate 4 mg IV. 1358: I discussed the case with Dr. Risa HEREDIA Hospitalist. He will evaluate the patient for further treatment. Medical Decision Differential Diagnosis includes; influenza, flu-like illness, UTI, sepsis, bacteremia, pneumonia, meningitis, and cellulitis. There is a moderate leukocytosis at 16,000, this is consistent with infection. No worrisome anemia. Renal panel testing shows some worsening of his renal insufficiency, likely from dehydration. Lactic acid level was somewhat elevated consistent with infection and/or dehydration. There was no hepatitis. Urinalysis does not show infection. Influenza and Lyme disease testing was negative. Chest film does show a pneumonia on the right. On exam, there was no meningismus, the patient was not toxic. Blood cultures are pending. Patient presents with some dyspnea, fever and body aching. He has been coughing. He does appear to have pneumonia by workup. Patient received IV Zosyn, IV saline, oral Tylenol. He was given IV morphine and IV Zofran. He received a DuoNeb. Given the borderline hypoxia, given the leukocytosis, given the pneumonia and the lactic acidosis, I did think a hospital stay was warranted. I spoke to the patient and case management. The on-call hospitalist was consulted. Medication Reconcilliation Current Medication List: was personally reviewed by me Blood Pressure Screening Patient's blood pressure: Normal blood pressure Consults Time Called: [id number] Consulting Physician: Dr. Risa HEREDIA Hospitalist Returned Call: [phone] I discussed the case with Dr. Risa HEREDIA Hospitalist. He will evaluate the patient for further treatment. Impression Primary Impression: Pneumonia Additional Impression: Weakness Scribe Attestation The scribe's documentation has been prepared under my direction and personally reviewed by me in its entirety. I confirm that the note above accurately reflects all work, treatment, procedures, and medical decision making performed by me. Departure Information Dispostion Being Evaluated By Hospitalist Referrals Donell Velásquez M.D. (PCP) Patient Instructions My [facility] Problem Qualifiers
[2017-11-07 13:03] LABS: INR 1.1 (0.9-1.1); PTT PATIENT 28.5 SECONDS (21.0-31.0)
--- NOTE | 2017-11-07 13:09 | DIAGNOSTIC IMAGING REPORT ---
CHEST ONE VIEW PORTABLE CLINICAL HISTORY: 56 years-old Male presenting with Sepsis. TECHNIQUE: Portable upright AP view of the chest was obtained. COMPARISON: 06/03/[address] from 10/22/2017. FINDINGS: Cardiomediastinal silhouette normal. Peripheral hazy opacity in the right lower lung. This is new from prior. Mild prominence of pulmonary vasculature. No large effusion or pneumothorax. Osseous structures normal. IMPRESSION: 1. Peripheral consolidation in the right lower lung concerning for pneumonia. Dedicated PA and lateral views versus chest CT could be obtained to confirm this finding. Electronically signed by: Ezio Baldwin M.D. 11/07/2017 1:08 PM Dictated Date/Time: 11/07/2017 1:07 PM
[2017-11-07 13:10] LABS: ALBUMIN 2.6 gm/dl (3.4-5.0); CALCIUM 8.5 mg/dl (8.5-10.1); CREATININE 1.91 mg/dl (0.60-1.40); POTASSIUM 4.1 mmol/L (3.5-5.1)
[2017-11-07 13:13] LABS: TOTAL PROTEIN 7.4 gm/dl (6.4-8.2)
[2017-11-07 13:14] LABS: BASO % 0.2 %; BASO ABS # 0.04 K/uL (0-0.2); EOS % 0.4 %; EOS ABS # 0.06 K/uL (0-0.5); HEMATOCRIT 42.1 % (42-52); HEMOGLOBIN 14.4 g/dL (14.0-18.0); IG# 0.05 K/uL (0.00-0.02); LYMPH % 6.7 %; MEAN CELL VOLUME 87.2 fL (80-100); MEAN CORPUSCULAR HEMOGLOBIN 29.8 pg (25-34); MEAN CORPUSCULAR HGB CONC 34.2 g/dl (32-36); MEAN PLATELET VOLUME 11.2 fL (7.4-10.4); MONO % 7.3 %; MONO ABS # 1.19 K/uL (0.11-0.59); NEUT % 85.1 %; NEUT ABS # 13.91 K/uL (1.4-6.5); PLATELET COUNT 177 K/uL (130-400); RED CELL DISTRIBUTION WIDTH SD 44.3 fL (36.4-46.3); WHITE BLOOD COUNT 16.35 K/uL (4.8-10.8)
[2017-11-07] MEDS ORDERED: ONDANSETRON INJ 2 MG/ML 2 ML VIAL IV STA (13:25)
[2017-11-07] MEDS ORDERED: ALBUT/IPRATROP 3MG/0.5MG NEB 3 ML VIAL INH STA (13:27)
[2017-11-07] MEDS: MoRPHine SULFATE 4 MG/ML 1 ML CARP\\VIAL IV PRN ×2 (13:39→14:08)
[2017-11-07 13:50] LABS: INFLUENZA A PCR Neg for Influ A (NEG); INFLUENZA B PCR Neg for Influ B (NEG)
[2017-11-07] MEDS ORDERED: GLUCOSE 40% GEL 15 GM TUBE PO PRN (14:45)
[2017-11-07] MEDS ORDERED: CARBOHYDRATES FOR HYPOGLYCEMIA PO PRN (14:45)
[2017-11-07] MEDS ORDERED: DEXTROSE 50% 50 ML SYR IV PRN (14:45)
[2017-11-07] MEDS ORDERED: MAGNESIUM HYDROXIDE SUSP 30 ML UDC PO PRN (14:45)
[2017-11-07] MEDS ORDERED: GLUCAGON FOR INJ 1 MG VIAL SQ PRN (14:45)
[2017-11-07] MEDS ORDERED: ALUMINUM/MAGNESIUM/SIMETH (MAALOX MAX) 30 ML UDC PO PRN (14:45)
[2017-11-07] MEDS ORDERED: ONDANSETRON INJ 2 MG/ML 2 ML VIAL IV PRN (14:45)
[2017-11-07] MEDS ORDERED: POLYETHYLENE (MIRALAX) 17 GM PACK PO PRN (14:45)
[2017-11-07] MEDS ORDERED: GLUCOSE 10 TABS/TUBE PO PRN (14:45)
[2017-11-07] MEDS ORDERED: HydrALAZINE HCL 20 MG/ML VIAL IV. PRN (14:45)
[2017-11-07] MEDS ORDERED: ACETAMINOPHEN 325 MG TAB PO PRN (14:45)
[2017-11-07 14:53] VITALS: O2SAT 95; Ht 185.4 cm; Wt 119.7 kg
[2017-11-07] MEDS ORDERED: LEVOFLOXACIN / D5W 750 MG IV STA (15:03)
[2017-11-07] MEDS ORDERED: LEVAQUIN 750MG / 150ML D5W IV STA (15:09)
--- NOTE | 2017-11-07 15:10 | History and Physical ---
History & Physical Date & Time of Service: November 07, 2017 at 14:50 Chief Complaint: Fever,Aches,Sob,Wheezing,Chest Pain, Vomiting Primary Care Physician: Luis E Matthews M.D. History of Present Illness Source: patient, spouse ( at bedside), clinic records, hospital records This is a 56 y/o male with a history of HTN, HLD, h/o CVA, h/o a-fib, DM II with neuropathy and retinopathy, anxiety/depression, and CKD stage III who presented to the ED on 11/07 with weakness, fevers, myalgias, and shortness of breath. The patient states he was feeling well until Sunday afternoon when he developed weakness, diffuse myalgias, and shortness of breath. Yesterday he also developed nausea and vomiting. The patient reports having fevers and sweats at home. The patient has an intermittent productive cough but denies wheezing. The patient notes that about 2 weeks ago he had a mechanical fall which resulted in a left rib fracture. He notes that the fracture is much improved and he denies any pain currently. The patient denies chills, chest pain, palpitations, claudication, wheezing, abdominal pain, dysuria, hematuria, urinary retention, paralysis, focal motor weakness, numbness and tingling. Past Medical/Surgical History Medical Problems: (1) Acute maxillary sinusitis (2) Cellulitis (3) Diabetes (4) HTN (hypertension) (5) Left sided chest pain (6) Rib contusion (7) Rib contusion (8) Sepsis HLD H/o CVA H/o a-fib CKD stage III Family History Colon cancer Hypertension Social History Smoking Status: Former Smoker (quit 21 years ago) Smokeless Tobacco Use: No Alcohol Use: occasionally (very rare, 1-2 times a year) Drug Use: none Marital Status: Housing status: lives with significant other Occupational Status: unemployed Allergies Coded Allergies: No Known Allergies (Unverified , 11/07/17) Home Medications Scheduled Aspirin (Aspirin Chewable), 81 MG PO DAILY B Complex W/ C (Vitamin B Complex-C), 1 CAP PO DAILY Cinnamon (Cinnamon), 500 MG PO DAILY Citalopram (Citalopram Hydrobromide), 40 MG PO DAILY Empagliflozin-Linagliptin (Glyxambi 25-5 mg), 1 TAB PO DAILY Gabapentin (Neurontin), 300 MG PO QAM Gabapentin (Neurontin), 600 MG PO QPM Gemfibrozil (Lopid), 600 MG PO BIDM Metformin Hcl Er (Glucophage Er), 500 MG PO BID Metoprolol Tartrate (Lopressor) (Lopressor), 200 MG PO BID Quinapril Hcl (Quinapril Hcl), 20 MG PO DAILY Simvastatin (Zocor), 40 MG PO QPM Vitamin E (Alph-E), 400 MG PO DAILY Zinc (Zinc), 25 MG PO DAILY Scheduled PRN Acetaminophen (Tylenol), 1,000 MG PO UD PRN for Pain Dextromethorphan-Guaifenesin (Mucinex Dm Maximum Streng), 1 TAB PO UD PRN for CONGESTION Review of Systems Constitutional: +Fevers, sweats, generalized weakness. No chills Eyes: No worsening of vision, No eye pain, No diplopia ENT: No hearing loss, No nasal symptoms, No trouble swallowing Respiratory: +Productive cough, shortness of breath. No wheezing Cardiovascular: No chest pain, No claudication, No palpitations Abdomen: +Nausea, vomiting. No pain Musculoskeletal: +Diffuse myalgias. No joint pain, No swelling Genitourinary - Male: No dysuria, No urinary retention, No hematuria Neurologic: No paralysis, No weakness, No numbness/tingling Integumentary: No rash, No itch, No color change Physical Exam Vital Signs Date Time Temp Pulse Resp B/P (MAP) Pulse Ox O2 Delivery O2 Flow Rate FiO2 11/07/17 14:14 87 Room Air 11/07/17 14:14 94 Nasal Cannula 2.0 11/07/17 14:06 83 18 151/75 94 Room Air 11/07/17 13:14 84 22 137/73 93 Room Air 11/07/17 12:40 94 Room Air 11/07/17 12:40 82 24 121/74 94 Room Air 11/07/17 12:38 81 11/07/17 12:13 39.1 85 20 121/67 91 Room Air General appearance: +Obese. Diaphoretic. Well-developed, well-nourished, no apparent distress Head: Normocephalic, atraumatic Eyes: Normal inspection, PERRL, EOMI ENT: Normal ENT inspection, hearing grossly normal, pharynx normal Neck: Supple, no JVD, trachea midline Respiratory/Chest: +Decreased breath sounds right base. On 2L NC following morphine. Lungs clear to auscultation, normal breath sounds, no respiratory distress Cardiovascular: Regular rate & rhythm, no gallop, no murmur Abdomen/GI: Normal bowel sounds, non-tender, soft Extremities/Musculoskeletal: Normal inspection, no calf tenderness, no pedal edema Neurological/Psych: Alert, normal mood/affect, oriented x 3 Skin: +Diaphoretic. Normal color, no rash Diagnostics Laboratory Results Results Past 24 Hours Test 11/07/17 12:30 11/07/17 12:35 11/07/17 12:46 11/07/17 13:45 Range/Units Influenza Type A (RT-PCR) Neg for Influ A NEG Influenza Type B (RT-PCR) Neg for Influ B NEG White Blood Count 16.35 4.8-10.8 K/uL Red Blood Count 4.83 4.7-6.1 M/uL Hemoglobin 14.4 14.0-18.0 g/dL Hematocrit 42.1 42-52 % Mean Corpuscular Volume 87.2 80-100 fL Mean Corpuscular Hemoglobin 29.8 25-34 pg Mean Corpuscular Hemoglobin Concent 34.2 32-36 g/dl Platelet Count 177 130-400 K/uL Mean Platelet Volume 11.2 7.4-10.4 fL Neutrophils (%) (Auto) 85.1 % Lymphocytes (%) (Auto) 6.7 % Monocytes (%) (Auto) 7.3 % Eosinophils (%) (Auto) 0.4 % Basophils (%) (Auto) 0.2 % Neutrophils # (Auto) 13.91 1.4-6.5 K/uL Lymphocytes # (Auto) 1.10 1.2-3.4 K/uL Monocytes # (Auto) 1.19 0.11-0.59 K/uL Eosinophils # (Auto) 0.06 0-0.5 K/uL Basophils # (Auto) 0.04 0-0.2 K/uL RDW Standard Deviation 44.3 36.4-46.3 fL RDW Coefficient of Variation 14.0 11.5-14.5 % Immature Granulocyte % (Auto) 0.3 % Immature Granulocyte # (Auto) 0.05 0.00-0.02 K/uL Prothrombin Time 11.4 9.0-12.0 SECONDS Prothromb Time International Ratio 1.1 0.9-1.1 Activated Partial Thromboplast Time 28.5 21.0-31.0 SECONDS Partial Thromboplastin Ratio 1.1 Sodium Level 130 136-145 mmol/L Potassium Level 4.1 3.5-5.1 mmol/L Chloride Level 98 98-107 mmol/L Carbon Dioxide Level 22 21-32 mmol/L Anion Gap 10.0 3-11 mmol/L Blood Urea Nitrogen 32 7-18 mg/dl Creatinine 1.91 0.60-1.40 mg/dl Est Creatinine Clear Calc Drug Dose 57.9 ml/min Estimated GFR () 44.1 Estimated GFR (Non- 38.0 BUN/Creatinine Ratio 16.7 10-20 Random Glucose 281 70-99 mg/dl Calcium Level 8.5 8.5-10.1 mg/dl Total Bilirubin 0.7 0.2-1 mg/dl Aspartate Amino Transf (AST/SGOT) 14 15-37 U/L Alanine Aminotransferase (ALT/SGPT) 20 12-78 U/L Alkaline Phosphatase 128 45-117 U/L Total Protein 7.4 6.4-8.2 gm/dl Albumin 2.6 3.4-5.0 gm/dl Globulin 4.8 2.5-4.0 gm/dl Albumin/Globulin Ratio 0.5 0.9-2 Lyme Disease IgG Antibody NEG NEG Lyme Disease IgM Antibody NEG NEG Bedside Lactic Acid Venous 2.44 0.90-1.70 mmol/L Urine Color YELLOW Urine Appearance CLEAR CLEAR Urine pH 5.0 4.5-7.5 Urine Specific [place] 1.028 1.000-1.030 Urine Protein 3+ NEG Urine Glucose (UA) 3+ NEG Urine Ketones NEG NEG Urine Occult Blood 1+ NEG Urine Nitrite NEG NEG Urine Bilirubin NEG NEG Urine Urobilinogen NEG NEG Urine Leukocyte Esterase NEG NEG Urine WBC (Auto) 1-5 0-5 /hpf Urine RBC (Auto) 0-4 0-4 /hpf Urine Hyaline Casts (Auto) 5-10 0-5 /lpf Urine Epithelial Cells (Auto) 20-30 0-5 /lpf Urine Bacteria (Auto) NEG NEG Microbiology Results 11/07/17 Blood Culture, Received Pending 11/07/17 Blood Culture, Received Pending Diagnostic Radiology Reviewed the following studies and agree with interpretation as follows: CHEST ONE VIEW PORTABLE CLINICAL HISTORY: 56 years-old Male presenting with Sepsis. TECHNIQUE: Portable upright AP view of the chest was obtained. COMPARISON: 06/03/[address] from 10/22/2017. FINDINGS: Cardiomediastinal silhouette normal. Peripheral hazy opacity in the right lower lung. This is new from prior. Mild prominence of pulmonary vasculature. No large effusion or pneumothorax. Osseous structures normal. IMPRESSION: 1. Peripheral consolidation in the right lower lung concerning for pneumonia. Dedicated PA and lateral views versus chest CT could be obtained to confirm this finding. Impression Assessment and Plan 56 y/o male with a history of HTN, HLD, h/o CVA, h/o a-fib, DM II with neuropathy and retinopathy, anxiety/depression, and CKD stage III who presented to the ED on 11/07 with weakness, fevers, myalgias, and shortness of breath. Pt febrile on arrival with temperature of 39.1C. Vital signs otherwise stable. Pt was not hypoxic on arrival, but SpO2 did go down to 87% after receiving morphine. CXR shows consolidation in right lung base. WBC 16.35. Creatinine elevated above baseline at 1.91. POC lactic acid elevated at 2.44. Pt received Zosyn and IVF in ED. Sepsis secondary to pneumonia -Hemodynamically stable, admit to med/surg -O2 by protocol. Placed on 2L after morphine, weans as tolerated -Blood cultures pending -Levaquin 750 mg IV qd -NSS at 125 cc/hr -DuoNebs QIDR and q2h prn SOB/wheezing -Flu PCR negative ALEX on CKD stage III -Baseline creatinine 1.5 -Creatinine 1.91 on admission -IVF as above -Hold metformin and quinapril HTN, HLD, h/o CVA--stable. CVA was found incidentally, unknown when this occurred -Continue ASA, Lopressor 200 mg PO BID, gemfibrozil 600 mg PO BID, and Zocor 40 mg PO hs -Hold quinapril due to ALEX -Cover with hydralazine 10 mg IV q6h prn SBP >180 H/o a-fib--per outpatient records, not on any anticoagulation DM II w/neuropathy and retinopathy--last HgbA1c 9.1 on 10/30/17 -Pt refuses to take any insulin. Discussed with patient that he will likely have high sugars here that should be treated, in fact BSG 281 on arrival. Discussed risks with both pt and but still refuses any insulin or any medicine outside of his current outpatient regimen. Agreeable to holding metformin given ALEX. I did still order ISS in case patient changes his mind -Hold metformin and Glyxambi (contraindicated given current renal function) -Insulin sliding scale -Check BSGs q ac and qhs -Continue gabapentin 300 mg PO qam and 600 mg PO hs -Pt gets eye injections for retinopathy Anxiety/depression -Continue Celexa 40 mg PO qd DVT prophylaxis -Heparin 5000 units SC q12h -BARBARA [place] Code Status -Level I, FULL RESUSCITATION STATUS Resuscitation Status VTE Prophylaxis Will order VTE Prophylaxis: Yes
[2017-11-07] MEDS: ALBUT/IPRATROP 3MG/0.5MG NEB 3 ML VIAL INH SCH ×2 (15:43→18:44)
[2017-11-07] MEDS: SODIUM CHLORIDE 0.9% 1000ML 1,000 ML IV SCH ×2 (15:55→23:39)
[2017-11-07 16:00] VITALS: BP 105/61; PULSE 74; TEMP 37.2; O2SAT 96
[2017-11-07] MEDS: INSULIN ASPART 100 UNITS/ML 3 ML PEN SC SCH ×2 (16:30→21:00)
[2017-11-07] MEDS: GEMFIBROZIL 600 MG TAB PO SCH (17:52)
[2017-11-07] MEDS ORDERED: PNEUMOCOCCAL POLYSACCHARIDES 25 MCG/0.5 ML VIAL/SYR IM. ONE (18:00)
[2017-11-07] MEDS ORDERED: PNEUMOCOCCAL ADMINISTRATION CHARGE ONE (18:00)
[2017-11-07 18:46] VITALS: PULSE 74; O2SAT 98
[2017-11-07] MEDS ORDERED: GABAPENTIN 300 MG CAP PO SCH (21:00)
[2017-11-07] MEDS: HEPARIN SOD 5000 UNIT/0.5 ML CARP SQ SCH (21:00)
[2017-11-07] MEDS ORDERED: SIMVASTATIN 40 MG TAB PO SCH (21:00)
[2017-11-07] MEDS: METOPROLOL TARTRATE 100 MG TAB PO SCH (21:24)
[2017-11-07] MEDS: ASPIRIN 81 MG ECTAB PO SCH (21:43)
[2017-11-08 00:26] VITALS: BP 134/69; PULSE 68; TEMP 36.9; O2SAT 97
[2017-11-08 05:43] LABS: HEMATOCRIT 37.1 % (42-52); HEMOGLOBIN 12.4 g/dL (14.0-18.0); MEAN CELL VOLUME 88.3 fL (80-100); MEAN CORPUSCULAR HEMOGLOBIN 29.5 pg (25-34); MEAN CORPUSCULAR HGB CONC 33.4 g/dl (32-36); MEAN PLATELET VOLUME 10.5 fL (7.4-10.4); PLATELET COUNT 146 K/uL (130-400); RED CELL DISTRIBUTION WIDTH SD 45.7 fL (36.4-46.3); WHITE BLOOD COUNT 11.58 K/uL (4.8-10.8)
[2017-11-08 06:13] LABS: CALCIUM 7.8 mg/dl (8.5-10.1); CREATININE 1.92 mg/dl (0.60-1.40); POTASSIUM 4.1 mmol/L (3.5-5.1)
[2017-11-08] MEDS: INSULIN ASPART 100 UNITS/ML 3 ML PEN SC SCH ×2 (06:30→11:00)
[2017-11-08] MEDS: ALBUT/IPRATROP 3MG/0.5MG NEB 3 ML VIAL INH SCH ×2 (07:07→11:20)
[2017-11-08 07:09] VITALS: PULSE 68; O2SAT 95
[2017-11-08] MEDS ORDERED: NURSING VERBAL MED ORDER ONE (07:15)
[2017-11-08 07:23] VITALS: BP 138/82; PULSE 68; TEMP 36.4
[2017-11-08] MEDS: SODIUM CHLORIDE 0.9% 1000ML 1,000 ML IV SCH (07:52)
[2017-11-08] MEDS: GEMFIBROZIL 600 MG TAB PO SCH (07:52)
[2017-11-08] MEDS: HEPARIN SOD 5000 UNIT/0.5 ML CARP SQ SCH (07:52)
[2017-11-08] MEDS: METOPROLOL TARTRATE 100 MG TAB PO SCH (07:53)
[2017-11-08 08:00] VITALS: O2SAT 95
[2017-11-08] MEDS ORDERED: GABAPENTIN 300 MG CAP PO SCH (08:00)
[2017-11-08] MEDS ORDERED: TOCOPHERYL, DL-ALPHA 400 INTER.UNIT CAP PO SCH (08:00)
[2017-11-08] MEDS ORDERED: CITALOPRAM 40 MG TAB PO SCH (08:00)
[2017-11-08] MEDS: ASPIRIN 81 MG ECTAB PO SCH (08:35)
[2017-11-08] MEDS ORDERED: EMPAGLIFLOZIN LINAGLIPTIN PO SCH (09:00)
[2017-11-08 11:22] VITALS: PULSE 69; O2SAT 96
[2017-11-08] MEDS ORDERED: EMPAGLIFLOZIN PO SCH (12:00)
[2017-11-08] MEDS ORDERED: LINAGLIPTIN PO SCH (12:00)
[2017-11-08] MEDS ORDERED: LEVO1TAB35 PO (12:03)
[2017-11-08] MEDS ORDERED: PRVHFAIN INH (12:03)
--- NOTE | 2017-11-08 12:10 | Discharge Instructions ---
Discharge Instructions Date of Service November 08, 2017. Admission Reason for Admission: Pneumonia, Sepsis Discharge Discharge Diagnosis / Problem: Right lower lobe pneumonia, mild acute kidney injury, dehydration Discharge Goals Goal(s): Improve function, Improve disease control, Diagnostic testing (labs next week, chest x-ray in 6 weeks) Activity Recommendations Activity Limitations: resume your previous activity . Instructions / Follow-Up Instructions / Follow-Up Medications: - LEVAQUIN: 750mg daily in the evening, next dose due this evening, take for 6 more days, do not stop before prescription completed - ALBUTEROL: inhaler, use as needed for shortness of breath or cough - QUINAPRIL: hold this medication until told to resume by Dr. Matthews Pneumonia, right lower lobe: no fever, vitals stable, not requiring oxygen, minimal cough will treat for 6 more days with Levaquin need to follow up next week at Dr. Matthews's office need to get lab work including CBC and BMP should get a chest x-ray in 6 weeks to document resolution of the infiltrate Mild acute kidney injury on CKD stage II Cr elevated slightly at 1.9, baseline function around 1.5 safe to continue Glyxambi and Metformin hold Quinapril until you get kidney function tested next week stay well hydrated, push fluids over next several days FOLLOW UP - call Dr. Matthews's office today to get appointment next week, request a hospital follow up for pneumonia you need a CBC and BMP (blood work) at that appointment next week Current Hospital Diet Patient's current hospital diet: AHA Diet (Heart Healthy), Diabetes Type 2 Diet Discharge Diet Recommended Diet: AHA Diet (Heart Healthy), Diabetes Type 2 Diet Pending Studies Studies pending at discharge: no Laboratory Results Hemoglobin A1c Test 10/30/17 09:23 Range/Units Estimated Average Glucose 214 mg/dl Hemoglobin A1c 9.1 H 4.5-5.6 % Lipid Panel Test 10/30/17 09:23 Range/Units Triglycerides Level 276 H 0-150 mg/dl Cholesterol Level 199 0-200 mg/dl HDL Cholesterol 42 mg/dl Cholesterol/HDL Ratio 4.7 LDL Cholesterol, Calculated 102 mg/dl Medical Emergencies . Who to Call and When: Medical Emergencies: If at any time you feel your situation is an emergency, please call 911 immediately. . Non-Emergent Contact Non-Emergency issues call your: Primary Care Provider Call Non-Emergent contact if: you have a fever, you have any medication questions . . "Provider Documentation" section prepared by Carmelo Maxwell. . [place] Drug Monitoring Program Search Results: no issues identified
[2017-11-08 13:03] VITALS: BP 138/82; PULSE 69; TEMP 36.4; O2SAT 96
--- NOTE | 2017-11-08 14:11 | Discharge Summary ---
Discharge Summary Date of Service November 08, 2017. Discharge Summary Admission Date: November 07, 2017 at 14:50 Discharge Date: November 08, 2017 Discharge Disposition: Home Principal Diagnosis: Right lower lobe pneumonia, community acquired Problems/Secondary Diagnoses: Acute kidney injury CKD stage II/III DM type II Procedures: none Consultations: none Medication Reconciliation New Medications: Albuterol (Ventolin Hfa) 60 Puffs/5400 Mcg Aers 2 PUFFS INH QID PRN for Shortness of Breath, #1 INHALER 3 Refills Levofloxacin (Levaquin) 750 Mg Tab 750 MG PO DAILY@1800, #6 TAB Continued Medications: Acetaminophen (Tylenol) 500 Mg Tab 1000 MG PO UD PRN for Pain, TAB Aspirin (Aspirin Chewable) 81 Mg Chew 81 MG PO DAILY B Complex W/ C (Vitamin B Complex-C) 1 Cap Cap 1 CAP PO DAILY Cinnamon (Cinnamon) 500 Mg Cap 500 MG PO DAILY Citalopram (Citalopram Hydrobromide) 40 Mg Tab 40 MG PO DAILY Dextromethorphan-Guaifenesin (Mucinex Dm Maximum Streng) 1 Tab Tab 1 TAB PO UD PRN for CONGESTION, TAB Empagliflozin-Linagliptin (Glyxambi 25-5 mg) 1 Tab Tab 1 TAB PO DAILY Gabapentin (Neurontin) 300 Mg Cap 300 MG PO QAM, CAP Gabapentin (Neurontin) 300 Mg Cap 600 MG PO QPM Gemfibrozil (Lopid) 600 Mg Tab 600 MG PO BIDM, TAB Metformin Hcl Er (Glucophage Er) 500 Mg Tab 500 MG PO BID, TAB Metoprolol Tartrate (Lopressor) (Lopressor) 50 Mg Tab 200 MG PO BID, TAB Simvastatin (Zocor) 40 Mg Tab 40 MG PO QPM, TAB Vitamin E (Alph-E) 400 Unit Cap 400 MG PO DAILY Zinc (Zinc) 25 Mg Tab 25 MG PO DAILY Discontinued Medications: Quinapril Hcl (Quinapril Hcl) 20 Mg Tab 20 MG PO DAILY Discharge Exam Patient feeling well on room air, minimal cough, no fever/chills, eating well, ambulating independently. Discussed treatment with Levaquin, he agreed with this plan. Reviewed labs, Cr stable at 1.9 but no improvement. Making adequate urine, drinking lots of fluids. Discussed discharge plan and he acknowledged that he understood. Review of Systems: Constitutional: No fever, No chills, No sweats, No weight loss, No weakness , No fatigue, No problem reported Eyes: No worsening of vision, No eye pain, No redness, No discharge, No diplopia, No problem reported ENT: No hearing loss, No unusual epistaxis, No nasal symptoms, No sore throat, No tinnitus, No dental problems, No trouble swallowing, No problem reported Respiratory: + cough (minimal), + dyspnea on exertion (minimal), No sputum, No wheezing, No shortness of breath, No dyspnea at rest, No hemoptysis, No problem reported Cardiovascular: No chest pain, No orthopnea, No PND, No edema, No claudication, No palpitations, No problem reported Abdomen: No pain, No nausea, No vomiting, No diarrhea, No constipation, No GI bleeding, No problem reported Musculoskeletal: No joint pain, No muscle pain, No swelling, No calf pain, No problem reported Genitourinary - Male: No hematuria, No dysuria, No urinary frequency, No urinary urgency Neurologic: No memory loss, No paralysis, No weakness, No numbness/tingling , No vertigo, No balance problems, No problem reported Psychiatric: No depression symptoms, No anhedonism, No anxiety, No insomnia , No substance abuse, No problem reported Endocrine: No fatigue, No excessive thirst, No excessive urination, No problem reported Hematologic / Lymphatic: No abnormal bleeding/bruising, No clotting problems , No swollen lymph nodes, No night sweats, No problem reported Integumentary: No rash, No itch, No new/changing skin lesions, No color change, No bleeding, No problem reported Physical Exam: General Appearance: WD/WN, no apparent distress Eyes: normal inspection, EOMI, sclerae normal ENT: normal ENT inspection, hearing grossly normal, pharynx normal Neck: supple, no adenopathy, no JVD, trachea midline Respiratory/Chest: chest non-tender, lungs clear, no respiratory distress, no accessory muscle use, + decreased breath sounds (right base) Cardiovascular: regular rate, rhythm, no edema, no gallop, no JVD, no murmur , normal peripheral pulses Abdomen / GI: normal bowel sounds, non tender, soft, no organomegaly Extremities: normal inspection, no calf tenderness, normal capillary refill , no pedal edema, normal range of motion, pelvis stable Neurologic/Psychiatric: senior marketing data analyst II-XII nml as tested, no motor/sensory deficits , alert, normal mood/affect, normal reflexes, oriented x 3 Skin: normal color, warm/dry, no rash Lymphatic: no adenopathy Hospital Course 56 y/o male with a history of HTN, HLD, h/o CVA, h/o a-fib, DM II with neuropathy and retinopathy, anxiety/depression, and CKD stage III who presented to the ED on 11/07 with weakness, fevers, myalgias, and shortness of breath. Pt febrile on arrival with temperature of 39.1C. Vital signs otherwise stable. Pt was not hypoxic on arrival, but SpO2 did go down to 87% after receiving morphine. CXR shows consolidation in right lung base. WBC 16.35. Creatinine elevated above baseline at 1.91. POC lactic acid elevated at 2.44. Pt received Zosyn and IVF in ED. Sepsis secondary to pneumonia -afebrile, WBC trending down to 11k, responding well to Levaquin - titrated off of oxygen -NSS at 125 cc/hr while admitted -Flu PCR negative - d/c to home on Levaquin 750mg daily x 6 more days for 7 days total - Albuterol HFA PRN for dyspnea - follow up next week with PCP - recommend repeat CXR in 6 weeks to document resolution Acute kidney injury on CKD stage II/III -Baseline creatinine 1.5 -Creatinine 1.91 on admission, still high at 1.92 today but making adequate urine - continue to hold Quinapril on discharge, do not resume until BMP checked next week - patient will drink lots of fluids HTN, HLD, h/o CVA--stable. CVA was found incidentally, unknown when this occurred -Continue ASA, Lopressor 200 mg PO BID, gemfibrozil 600 mg PO BID, and Zocor 40 mg PO hs -Hold quinapril due to ALEX -Cover with hydralazine 10 mg IV q6h prn SBP >180 H/o a-fib--per outpatient records, not on any anticoagulation DM II w/neuropathy and retinopathy--last HgbA1c 9.1 on 10/30/17 - continue Metformin and Glyxambi, GFR is 60 -Continue gabapentin 300 mg PO qam and 600 mg PO hs -Pt gets eye injections for retinopathy Anxiety/depression -Continue Celexa 40 mg PO qd DVT prophylaxis -Heparin 5000 units SC q12h -BARBARA campbell and Nurys Code Status -Level I, FULL RESUSCITATION STATUS d/c to home Total Time Spent: Greater than 30 minutes This includes examination of the patient, discharge planning, medication reconciliation, and communication with other providers. Discharge Instructions Please refer to the electronic Patient Visit Report (Discharge Instructions) for additional information. Follow-Up Dr. Matthews in one week Dr. Blackwood on 11/25 as previously scheduled Additional Copies To Luis E Matthews M.D.; Jose Blackwood D.O.
[2017-11-08] MEDS ORDERED: LEVOFLOXACIN / D5W 750 MG in PREMIXED IN D5W 150 ML IV SCH (15:00)
[2017-11-08] MEDS ORDERED: TRAZODONE HCL 50 MG TAB PO PRN (21:00)
== END 2017-11-08 14:23 | disposition home or self-care (01) | DRG 871 ==
LOC: C.EDB 12:12 → C.4E 14:50 → ENRESERV 15:10
PROVIDERS: ADMIT Hospitalist; ATTEND Internal Medicine
DX: A41.9 Sepsis, unspecified organism (principal); J18.9 Pneumonia, unspecified organism; N17.9 Acute kidney failure, unspecified; I12.9 Hypertensive chronic kidney disease with stage 1 through stage 4 chronic kidney disease, or unspecified chronic kidney disease; E11.22 Type 2 diabetes mellitus with diabetic chronic kidney disease; N18.3 Chronic kidney disease, stage 3 (moderate); E11.319 Type 2 diabetes mellitus with unspecified diabetic retinopathy without macular edema; E11.40 Type 2 diabetes mellitus with diabetic neuropathy, unspecified; F32.9 Major depressive disorder, single episode, unspecified; F41.9 Anxiety disorder, unspecified; E78.5 Hyperlipidemia, unspecified; Z79.82 Long term (current) use of aspirin; Z79.84 Long term (current) use of oral hypoglycemic drugs; Z79.899 Other long term (current) drug therapy; Z86.73 Personal history of transient ischemic attack (TIA), and cerebral infarction without residual deficits; Z87.891 Personal history of nicotine dependence

== ENCOUNTER → 2017-11-14 | Outpatient (CLI) | payer BC ==
[~2017-11-14] MED LIST changes: +LEVO1TAB35 PO; -OXYC1TAB3 PO; +PRVHFAIN INH; -QUIN20TA30 PO
[2017-11-14 12:28] LABS: BASO % 0.9 %; BASO ABS # 0.11 K/uL (0-0.2); EOS % 4.2 %; EOS ABS # 0.51 K/uL (0-0.5); HEMATOCRIT 43.1 % (42-52); HEMOGLOBIN 14.1 g/dL (14.0-18.0); IG# 0.36 K/uL (0.00-0.02); LYMPH % 23.4 %; LYMPH ABS # 2.85 K/uL (1.2-3.4); MEAN CELL VOLUME 88.1 fL (80-100); MEAN CORPUSCULAR HEMOGLOBIN 28.8 pg (25-34); MEAN CORPUSCULAR HGB CONC 32.7 g/dl (32-36); MONO % 8.1 %; MONO ABS # 0.99 K/uL (0.11-0.59); NEUT % 60.4 %; NEUT ABS # 7.35 K/uL (1.4-6.5); PLATELET COUNT 265 K/uL (130-400); RED CELL DISTRIBUTION WIDTH CV 13.9 % (11.5-14.5); RED CELL DISTRIBUTION WIDTH SD 44.9 fL (36.4-46.3); WHITE BLOOD COUNT 12.17 K/uL (4.8-10.8)
[2017-11-14 12:45] LABS: ALBUMIN 2.4 gm/dl (3.4-5.0); ALT/SGPT 44 U/L (12-78); AST/SGOT 24 U/L (15-37); BLOOD UREA NITROGEN 34 mg/dl (7-18); CALCIUM 8.8 mg/dl (8.5-10.1); CARBON DIOXIDE 23 mmol/L (21-32); GLUCOSE 190 mg/dl (70-99); POTASSIUM 4.7 mmol/L (3.5-5.1); SODIUM 135 mmol/L (136-145)
[2017-11-14 12:47] LABS: ALKALINE PHOSPHATASE 125 U/L (45-117); TOTAL PROTEIN 7.5 gm/dl (6.4-8.2)
== END | disposition home or self-care (01) ==
LOC: C.LABPVFM 09:20
PROVIDERS: ATTEND Family Medicine
DX: E11.65 Type 2 diabetes mellitus with hyperglycemia (principal); E11.22 Type 2 diabetes mellitus with diabetic chronic kidney disease; R07.89 Other chest pain; N18.3 Chronic kidney disease, stage 3 (moderate); J18.9 Pneumonia, unspecified organism

== ENCOUNTER → 2018-02-22 | Outpatient (CLI) | payer BC ==
[~2018-02-22] MED LIST changes: -DEXT1TAB50 PO; -GEMF600T3 PO; +GEMF600T5 PO; -LEVO1TAB35 PO; -METF500T5 PO; +NRV5 PO; +OXYC1CAP5 PO; +REGADENOSON 0.4 MG/5 ML SYR ONE
--- NOTE | 2018-02-23 02:14 | MYOCARDIAL PERFUSION SCAN ---
ONE-DAY NUCLEAR MEDICINE TECHNETIUM-99M CARDIOLITE MYOCARDIAL PERFUSION SCAN INDICATION: Chest pain. RESTING EKG: Sinus bradycardia at a ventricular rate of [address] abnormalities. STRESS EKG: Heart rate narciso from 52-65 representing 40% of maximum predicted heart rate. Blood pressure narciso from 124/70-197/97. He had mild chest discomfort and headache, which resolved quickly after Lexiscan infusion completed. With Lexiscan, there were no ST abnormalities or arrhythmias noted on EKG. TECHNIQUE: For the stress portion of the study, 32.9 mCi of technetium-99m Cardiolite IV was injected at 1400 p.m. on 02/22/2018. Thirty minutes following injection, imaging of the heart was performed in multiple projections. For the rest portion of the study, 10.3 mCi of technetium-99m Cardiolite was injected IV at 11:35 a.m. One hour following injection, imaging of the heart was performed in the same projections. FINDINGS: Rotating raw images were reviewed in detail. There was a moderate gut/liver uptake impacting the inferior imaging border of the heart. There was suggestion of a diaphragmatic attenuation. There was no significant extracardiac pathologic uptake. The short axis, vertical long axis, horizontal long axis images were reviewed in detail. There was no visual TID. There was a small, [id number], mostly reversible perfusion defect involving the inferior lateral wall from base to mid with a summed difference score of 4. Defect partially could potentially represent diaphragmatic attenuation, but ischemia cannot be ruled out. A calculated end-diastolic volume of 160 mL. Calculated EF of 60% with no regional wall motion abnormalities. IMPRESSION: 1. Abnormal myocardial perfusion study with small, [id number], mostly reversible perfusion defect involving the inferior lateral wall. Potentially represents diaphragmatic attenuation artifact but a small amount of circumflex distribution ischemia cannot be excluded. 2. Normal left ventricular size and function. Calculated ejection fraction of 60%, no regional wall motion abnormalities. 3. Nondiagnostic stress EKG due to inability to reach target heart rate with Lexiscan. MTDD
== END | disposition home or self-care (01) ==
LOC: C.NUCL 11:15
PROVIDERS: ATTEND Family Medicine
DX: R07.9 Chest pain, unspecified (principal)